=== PATIENT | female | born 1955 | race Caucasian/White ===

== ENCOUNTER 2019-09-07 07:00 | Outpatient (RCR) | payer OTHER, SELFPAY ==
--- NOTE | 2019-07-04 08:16 | PTOPEVAL ---
PHYSICAL THERAPY EVALUATION AND PLAN OF CARE 07-04-19 The PT evaluation was completed today for the diagnosis of L UE and breast lymphedema. The plan of treatment is 3x/week for 5 weeks. Thank you for referring Mrs. Benitez to [facility]. Please review, sign, date and return this plan of care JOBY. I agree with and certify that the following plan of care is medically necessary. Referring Physician Date Attending Provider: Dr. Ciara Jones *PT Outpatient Evaluation Start: 07/04/19 07:09 Document 07/04/19 07:00 CHRISTIANA (Rec: 07/04/19 07:40 CHRISTIANA [email or web address]) Therapy Assessment Status Assessment Status Assessment Status Evaluation Outpatient Past Medical History Neurological History Hx Neurological Disorders No Significant History Cardiovascular History Hx Cardiac Disorders No Significant History Respiratory History Hx Respiratory Disorders No Significant History Gastrointestinal History Hx Gastrointestinal Disorders No Significant History Genitourinary History Hx Genitourinary Disorders No Significant History Musculoskeletal History Hx Other Musculoskeletal Disorders Yes: lupus-overall body pain; osteopenia; Hematological History Hx Hematological Disorders No Significant History Endocrine History Hx Systemic Lupus Erythematosus Yes HEENT History Hx HEENT Disorders No Significant History Psychosocial History Hx Anxiety Yes: on meds Hx Depression Yes: on meds Other History Hx Other Surgeries Yes: tonsillectomy as teenager Evaluation Information Problem Diagnosis L UE lymphedema Onset 06-22-19 Subjective Information to be referred to an infection Query Text:As Reported By Patient/ control dr--appt not set Family Prior Level of Function Activity Level (Last 3 Months) 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
--- NOTE | 2019-07-09 11:07 | PCPTNOTE ---
Patient called & cancelled scheduled appointment this date due to [weather ]
--- NOTE | 2019-07-23 09:31 | PCPTNOTE ---
Patient called & cancelled scheduled appointment this date due to pt thinks she may have the flu. ]
--- NOTE | 2019-08-09 09:06 | PCPTNOTE ---
Pt's reeval was cancelled today . Pt had some questions . Called Kiley back . Kiley stated she called [employer] back and they said the [employer] night Garment would cost $900.00. Patient wanted to know if this was the glez juarez. [employer] could not give her an answer . Pt decided to order through [employer] which was $312.00. Gave Kiley the information to order through [employer] and suggested that after her deductible is met she may want to try to submit the receipt to her insurance. Pt also wanted to know what she should do about her arm since she will not be seen for her reeval until Tuesday. Reviewed the steps she should do to keep her arm from reswelling.
--- NOTE | 2019-08-14 08:16 | PCPTNOTE ---
pt no show no call, called pt nd woke her up. Reminded pt of appointment papa.
--- NOTE | 2019-08-15 16:16 | PTOPEVAL ---
Addendum entered by Mary Anne Rivas, PT 08/15/19 16:40: Plan of care is 2-3x/week for 3 weeks. Original Note: PHYSICAL THERAPY RE-EVALUATION AND UPDATED PLAN OF CARE 08-15-2019 Mrs. Benitez has received 17 Physical Therapy sessions, from July 04 to today,for the diagnosis of L breast and UE lymphedema. She called and canceled 2 and did not show for 1 appointment. Compared to the initial evaluation: The circumferential measurement of her L UE was 318.3 cm today, decreased by 19.3 cm. Last week's measurement was 303 cm. Today it may have been increased due to taking the compression wraps off 6 days ago, due to missing therapy and the weekend. With the circumferential measurement of her trunk: at arm pit level is decreased by .2 cm and at L nipple decreased by 2.5 cm. The tissue of her forearm is less fibrotic/firm. Therapy treatment is scheduled to continue 2-3x/week for 4 weeks. Thank you for referring Kiley to [facility]. Please review, sign, date and return this plan of care [facility]. I agree with and certify that the following plan of care is medically necessary. Referring Physician Date Attending Provider: Dr. Ciara Jones *PT Outpatient Re-Evaluation Document 08/15/19 10:53 CHRISTIANA (Rec: 08/15/19 11:05 CHRISTIANA [email or web address]) Subjective Information Kiley reports: arm is better- Query Text:As Reported By Patient/ -smaller size and feeling good Family ; pleased with progress of arm, but want it to be smaller ; when her arm is not wrapped, is doing the home pump; and doing deep breathing and arm exercises. She took off the compression wraps 6 days ago, due to illness missed therapy. She has been wearing her compression sleeve with stretch wrap over it. Pain Assessment Pain Scale Pain Scale Used Numeric (1 - 10) Self Report Pain Assessment Left Arm(s) Reported Pain Level 0 Pain Score Pain Score 0: Self Report Lymphedema Evaluation Skin Inspection Location Left Breast,Left Upper Extremity Tissue Texture Hard Lymphedema Stage II Skin Inspection Comment -L breast: tissue with normal skin color; area of fibrotic tissue/firmness over outer aspect, without tenderness; - L UE: area of lateral upper forearm with thick/firm tissuse; slight redness with slight tenderness; - pt is wearing a good, supportive/compression bra.
--- NOTE | 2019-09-05 07:32 | PCPTNOTE ---
Pt no show . Called pt and she stated she jerzy to the ER last night and was dx with the flu. Pt stated she called and left a V.M at 12:30am stating she would have to cancel today.
--- NOTE | 2019-09-07 07:54 | PTOPEVAL ---
PHYSICAL THERAPY DISCHARGE 09-07-2019 Ms. Benitez has received 26 Physical Therapy sessions, from July 04 to today, for the diagnosis of L breast and UE lymphedema. Compared to the last reevaluation: circumference of her L arm has decreased by 10.1 cm; the 2 trunk measurements about the same, within 1.7 cm; tissue of lateral breast has softened and no longer fibrotic; continues to have some thickness of tissue over medial-distal humerus and medial-proximal forearm. Kiley has a good understanding of lymphedema management--has 30-40 mmHg compression gauntlet and sleeve, home intermittent compression pump and night compression garment. And she is independent with her self MLD and skin monitoring. Thank you for referring Kiley to [facility]. Please review, sign, date and return this discharge JOBY. I agree with and certify that the following plan of care is medically necessary. Referring Physician Date Attending Provider: Dr. Ciara Henriquez *PT Outpatient Discharge Document 09/07/19 07:10 CHRISTIANA (Rec: 09/07/19 07:54 CHRISTIANA [email or web address]) Assessment Status Discharge Subjective Information Kiley reports: using night Query Text:As Reported By Patient/ garment, have ordered new Family garment, is using her home intermittent compression pump, sometimes feel like upper arm is swollen and hits the side of her breast and agrees to discharge from PT. Pain Assessment Timing of Pain Assessment Timing of Pain Assessment Assessment Pain Scale Pain Scale Used Numeric (1 - 10) Self Report Pain Assessment Left Arm(s) Reported Pain Level 0 Additional Pain Comments reports no pain in L arm or breast; some numbness over upper arm Pain Score Pain Score 0: Self Report Upper Extremity Range of Motion General Upper Extremity Range of Motion Reason Not Measured WNL/Left Gross Upper Extremity Range of Motion no pain with L shoulder AROM; Comments good strength of L arm-doing all home and work tasks; Lymphedema Evaluation Skin Inspection Location Left Breast,Left Upper Extremity,Left Anterior Upper Quadrant,Left Posterior Upper Quadrant Tissue Adhesion Location firmness of tissue over medial -distal humerus and medial- proximal anterior forearm; no tenderness with palpation; breast without any fibrosis or tenderness; Skin Inspection Comment performed abbreviated MLD treatment during evaluation
== END 2019-09-07 12:01 | disposition home or self-care (01) ==
LOC: ANHPT 07:00
DX: I97.2 Postmastectomy lymphedema syndrome (principal)
CPT/HCPCS: 97140; 97161

== ENCOUNTER 2019-09-25 10:29 | Outpatient (CLI) | payer OTHER, SELFPAY ==
--- NOTE | ~2019-09-25 | CT_ITS ---
EXAMINATION: CT chest abdomen pelvis w con DATE: 09/25/2019 11:04 INDICATION: Left breast cancer. TECHNIQUE: Computed tomography (CT) of the chest, abdomen, and pelvis was performed with 100 mL Omnip aque 350 intravenous contrast. Automated exposure control and iterative reconstruction technique were employed. The dose-length product was 374.66 mGy-cm. COMPARISON: CT chest and abdomen 03/29/2019, 11/12/15 FINDINGS: CHEST CT: The lungs demonstrated mild atelectasis bilaterally. There is mild scarring at the anterolateral left lung apex. Calcified left lung nodules and calcified left hilar and mediastinal lymph nodes are cons istent with old granulomatous disease. No pleural effusion. The heart size is normal. There are coron pipo artery calcifications. No pericardial effusion. There are surgical clips in left axilla. There is mild chronic anterior wedging of multiple thoracic vertebral bodies. There is moderate thoracic spon dylosis. ABDOMEN/PELVIS CT: There is an 11 mm mass in right hepatic lobe, stable from 11/12/15, likely benign. The spleen, pancrea s, adrenal glands, and kidneys are normal. There is desiccated stool in mildly dilated loops of ileum without focal transition point, consistent with adynamic ileus. There are no pathologically enlarged lymph nodes. There is no free intraperitoneal fluid. There is moderate lumbar spondylosis. IMPRESSION: 1. No evidence of metastatic disease. 2. Adynamic ileus. Reviewed, dictated and finalized at location A. AVER LETTERING
[2019-09-25 10:57] LABS: Estimated Glomerular Filt Rate > 60
== END 2019-09-25 10:30 | disposition home or self-care (01) ==
LOC: ANHIMG 10:34
PROVIDERS: Visit Provider Internal Medicine Medical Oncology
DX: C50.512 Malignant neoplasm of lower-outer quadrant of left female breast (principal); Z17.1 Estrogen receptor negative status [ER-]; K56.0 Paralytic ileus
CPT/HCPCS: 36415; 71260; 74177; Q9967

== ENCOUNTER 2019-09-28 12:57 | Outpatient (CLI) | payer OTHER, SELFPAY ==
--- NOTE | ~2019-09-28 | MM_ITS ---
EXAMINATION: MM diagnostic clayton RT w raffi HISTORY: Follow-up of benign right stereotactic breast biopsy TECHNIQUE: ML, MLO and cc 3-D tomosynthesis images of the right breast were performed and synthetic 2 -D images were generated. CAD analysis was submitted and interpreted. COMPARISON: 01/19/2019 post stereotactic biopsy right mammogram 01/08/2019diagnostic right digital mammogram and limited right breast ultrasound 12/20/2018 bilateral digital screening mammogram BREAST PARENCHYMAL COMPOSITION: The breasts are heterogeneously dense, which may obscure small masses . FINDINGS: A biopsy marker and some benign-appearing calcifications are noted on the right. No suspici ous mass, architectural distortion, malignant calcification, skin thickening or retraction is evident . IMPRESSION: 1. Benign calcifications 2. No mammographic evidence of malignancy; routine annual mammographic screening follow-up is recomme nded BI-RADS Category 2: Benign finding(s). Reviewed, dictated and finalized at location A. NG ADVISOR IMPRESSION: 1. Benign calcifications 2. No mammographic evidence of malignancy; routine annual mammographic screenin g follow-up is recommended BI-RADS Category 2: Benign finding(s).
== END 2019-09-28 12:58 | disposition home or self-care (01) ==
LOC: ANHIMG 13:12
PROVIDERS: Visit Provider Obstetrics & Gynecology Gynecology
DX: R92.8 Other abnormal and inconclusive findings on diagnostic imaging of breast (principal); M81.0 Age-related osteoporosis without current pathological fracture
CPT/HCPCS: 77061; 77065; G0279

== ENCOUNTER 2019-12-27 09:55 | Outpatient (CLI) | payer OTHER, SELFPAY ==
--- NOTE | ~2019-12-27 | MM_ITS ---
EXAMINATION: MM screening clayton LT w raffi HISTORY: Screening mammogram TECHNIQUE: Craniocaudal and mediolateral oblique 3-D tomosynthesis images were obtained and synthetic 2-D images were generated. Rotated lateral cc view. CAD analysis was submitted and interpreted. COMPARISON: 12/20/2018, 09/28/2017 bilateral digital screening mammogram examinations BREAST PARENCHYMAL COMPOSITION: There are scattered areas of fibroglandular density. FINDINGS: Postoperative change of the left breast is again noted. Occasional benign calcifications. T here is no evidence of suspicious mass, calcification, or architectural distortion to suggest maligna ncy in either breast. There has been no suspicious interval change. IMPRESSION: 1. No mammographic evidence of malignancy. 2. Recommend routine screening mammography in one year. BI-RADS Category 2: Benign finding(s). Reviewed, dictated and finalized at location A.
--- NOTE | ~2019-12-27 | DEXA_ITS ---
Bone Density Report Name: Brittni Benitez Age: 64 Sex: Female Ethnicity: White Date of : 1955 Indication: osteopenia; monitoring treatment; cancer; post menopausal Referring Provider: JEAN PAUL SAUNDERS Study: Bone densitometry was performed. Exam Date: December 27, 2019 Accession number: [id number] Bone Density: Region BMD T-score Z-score Classification AP Spine (L1-L4) 0.844 -1.8 -0.1 Osteopenia Femoral Neck (Left) 0.683 -1.5 0.0 Osteopenia Total Hip (Left) 0.844 -0.8 0.4 Normal Total Hip Bilateral Avg 0.835 -0.9 0.4 Normal Femoral Neck (Right) 0.658 -1.7 -0.2 Osteopenia Total Hip (Right) 0.825 -1.0 0.3 Normal World Health Organization criteria for BMD impression classify patients as: Normal (T-score at or above -1.0), Osteopenia (T-score between -1.0 and -2.5), or Osteoporosis (T-score at or below -2.5). 10-year Fracture Risk: FRAX not reported because: Treated for osteoporosis Previous Exams: Region Exam Age BMD T-score BMD Change BMD Change Date g/cm2 vs Baseline vs Previous AP Spine(L1-L4) 12/27/2019 64 0.844 -1.8 -0.156(-15.6%) 0.011(1.3%) 09/28/2017 62 0.833 -1.9 -0.167(-16.7%) 0.071(9.3%)* 08/08/2015 60 0.762 -2.6 -0.238(-23.8%) -0.197(-20.5%) 04/13/2011 56 0.958 -0.8 -0.041(-4.1%)* -0.041(-4.1%)* 03/01/2008 53 1.000 -0.4 Total Hip(Left) 12/27/2019 64 0.844 -0.8 -0.067(-7.4%)# 0.006(0.7%) 09/28/2017 62 0.838 -0.9 -0.073(-8.0%)# 0.054(6.9%)* 08/08/2015 60 0.784 -1.3 -0.127(-14.0%) -0.067(-7.9%)# 04/13/2011 56 0.851 -0.7 -0.060(-6.6%)* -0.060(-6.6%)* 03/01/2008 53 0.911 -0.3 Total Hip(Right) 12/27/2019 64 0.825 -1.0 -0.053(-6.1%)# -0.015(-1.8%) 09/28/2017 62 0.840 -0.8 -0.038(-4.3%)# 0.050(6.3%)* 08/08/2015 60 0.790 -1.2 -0.088(-10.0%) -0.046(-5.5%)# 04/13/2011 56 0.836 -0.9 -0.042(-4.7%)* -0.042(-4.7%)* 03/01/2008 53 0.878 -0.5 *Denotes significance at 95% confidence level, LSC for AP Spine = 0.022 g/cm2, LSC for Total Hip = 0.027 g/cm2 Clinical Information Provided by Patient: Is being treated for osteoporosis Has used the following medications: Prolia (i.e. denosumab), Vitamin D Has the following medical conditions: Cancer, LUPUS-breast ca Patient maximum height was 64.5 Menopause Age: 53 No regular weight bearing exercise Drinks caffeinated beverages Onset of menses at age 10 Number of children 1 Impression: The patient has
== END 2019-12-27 09:56 | disposition home or self-care (01) ==
LOC: ANHIMG 10:05
PROVIDERS: PCP Family Medicine; Referring Provider Internal Medicine Medical Oncology; Visit Provider Obstetrics & Gynecology Gynecology
DX: Z12.31 Encounter for screening mammogram for malignant neoplasm of breast (principal); Z78.0 Asymptomatic menopausal state; M85.89 Other specified disorders of bone density and structure, multiple sites
CPT/HCPCS: 77063; 77067; 77080

== ENCOUNTER 2020-04-02 10:03 | Outpatient (CLI) | payer MEDICARE, SELFPAY ==
--- NOTE | ~2020-04-02 | CT_ITS ---
EXAMINATION: CT chest abdomen pelvis w con DATE: 04/02/2020 11:01 INDICATION: Malignant neoplasm of the lower outer quadrant of left breast; restaging TECHNIQUE: Computed tomography (CT) of the chest, abdomen, and pelvis was performed with 100 cc Omnip aque 350 intravenous contrast. Automated exposure control and iterative reconstruction technique were employed. Exam dose: 390.47 mGy-cm total exam DLP. COMPARISON: 09/25/2019 CT chest abdomen pelvis 03/23/2016 CT chest abdomen FINDINGS: CHEST CT: The thyroid gland is unremarkable. No hilar or mediastinal mass lesion or lymphadenopathy. No thoraci c aortic aneurysm. Normal heart size. Coronary artery atherosclerosis. Stable left apical scarring compared to 09/25/2019. No interval pulmonary infiltrate or consolidation o r pulmonary mass lesion. Postoperative change of left breast. ABDOMEN/PELVIS CT: Stable right hepatic approximately 10 mm mass, unchanged since 09/25/2019 and 03/23/2016. The liver, spleen, pancreas, adrenal glands and kidneys are otherwise unremarkable. Normal caliber of the abdominal aorta, with atherosclerotic calcification. No intraperitoneal or retroperitoneal or pe lvic mass lesion or adenopathy or ascites is evident. The urinary bladder, uterus and adnexal areas a re unremarkable. Diverticulosis of the colon; no CT evidence of diverticulitis. No bowel obstruction, bowel wall thick ening, pneumatosis or intraperitoneal free air. No suspicious osteolytic or osteoblastic lesions are noted. IMPRESSION: No metastatic disease or significant change since 10/12/2019 Reviewed, dictated and finalized at Location A. Reviewed, dictated and finalized at location A.
[2020-04-02 11:27] LABS: Estimated Glomerular Filt Rate > 60
== END 2020-04-02 10:04 | disposition home or self-care (01) ==
LOC: ANHIMG 10:07
PROVIDERS: PCP Family Medicine; Visit Provider Internal Medicine Medical Oncology
DX: C50.512 Malignant neoplasm of lower-outer quadrant of left female breast (principal); Z17.1 Estrogen receptor negative status [ER-]
CPT/HCPCS: 71260; 74177; Q9967

== ENCOUNTER 2020-09-30 09:21 | Outpatient (CLI) | payer MEDICARE, SELFPAY ==
--- NOTE | ~2020-09-30 | CT_ITS ---
EXAMINATION: CT chest abdomen pelvis w con DATE: 09/30/2020 10:09 INDICATION: Malignant neoplasm of the left breast TECHNIQUE: Transaxial computed tomographic images of the chest, abdomen, and pelvis were obtained aft er the administration of 100 cc of Omnipaque 350 intravenous contrast. The dose-length product (DLP) was 473.15 mGy-cm. Automated exposure control and iterative reconstruction technique were employed. COMPARISON: 04/02/2020 FINDINGS: CHEST CT: Lumpectomy changes are noted in the left breast. There are stable subpleural reticular opacities ante riorly in the left upper lobe, likely reflecting radiation change. There is mild dependent atelectasi s. No suspicious pulmonary nodules are identified. No pathologically enlarged thoracic lymph nodes ar e identified. The heart size is normal. There is no pleural effusion or pneumothorax. There is modera te thoracic spondylosis. ABDOMEN/PELVIS CT: There is a stable 11 mm lesion in the right hepatic lobe, most likely benign given the lack of interv al change. The spleen, pancreas, gallbladder, and adrenal glands are normal. The kidneys are unremark able. There is calcified atherosclerosis of the aorta and many of the other arteries. No pathological ly enlarged abdominal or pelvic lymph nodes are identified. There is no free intraperitoneal gas or e vidence of bowel obstruction. A moderate volume of colonic stool is present. There is moderate lumbar spondylosis. IMPRESSION: 1. No evidence of metastatic disease. Reviewed, dictated and finalized at location A. 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
[2020-09-30 10:00] LABS: Estimated Glomerular Filt Rate > 60
== END 2020-09-30 09:22 | disposition home or self-care (01) ==
PROVIDERS: PCP Family Medicine; Visit Provider Internal Medicine Medical Oncology
DX: C50.512 Malignant neoplasm of lower-outer quadrant of left female breast (principal); Z17.1 Estrogen receptor negative status [ER-]
CPT/HCPCS: 71260; 74177; Q9967

== ENCOUNTER 2020-12-24 07:56 | Outpatient (CLI) | payer MEDICARE, SELFPAY ==
--- NOTE | ~2020-12-24 | MM_ITS ---
EXAMINATION: MM screening clayton BI w raffi HISTORY: Screening TECHNIQUE: Craniocaudal and mediolateral oblique 3-D tomosynthesis images were obtained and synthetic 2-D images were generated. CAD analysis was submitted and interpreted. COMPARISON: Comparison to multiple prior studies sequentially, with oldest reviewed study dated 01/08. BREAST PARENCHYMAL COMPOSITION: The breasts are heterogeneously dense, which may obscure small masses . FINDINGS: Stable surgical changes of the left breast. There is no evidence of suspicious mass, calcif ication, or architectural distortion to suggest malignancy in either breast. There has been no suspic ious interval change. IMPRESSION: 1. No mammographic evidence of malignancy. 2. Recommend routine screening mammography in one year. BI-RADS Category 2: Benign finding(s). Reviewed, dictated and finalized at location A.
== END 2020-12-24 07:57 | disposition home or self-care (01) ==
LOC: ANHIMG 07:59
PROVIDERS: PCP Family Medicine; Visit Provider Obstetrics & Gynecology Gynecology
DX: Z12.31 Encounter for screening mammogram for malignant neoplasm of breast (principal)
CPT/HCPCS: 77063; 77067

== ENCOUNTER 2021-03-31 10:32 | Outpatient (CLI) | payer MEDICARE, SELFPAY ==
--- NOTE | ~2021-03-31 | CT_ITS ---
EXAMINATION: CT chest abdomen pelvis w con EXAM DATE: 03/31/2021 10:59 INDICATION: Malignant neoplasm of lower out quad LT breast in female. TECHNIQUE: Spiral CT of the chest, abdomen and pelvis was performed following intravenous injection o f 100 mL Omnipaque 350. Axial, coronal and sagittal images chest, abdomen and pelvis were reviewed. Coronal maximum intensity pixel images of chest reviewed. The dose-length product (DLP) for this ex amination was 428.33 mGy-cm. The exposure was tailored according to patient size (auto mA exposure c ontrol), and iterative reconstruction (ASIR) was used as additional dose reduction technique. Compari son is made to prior examination from 09/30/2020. FINDINGS: CHEST: Left apical scarring is unchanged. There are left axillary surgical clips from lymph node dis section. There are no pleural or pericardial effusions. Tracheobronchial tree is patent. There i s no mediastinal, hilar or axillary lymphadenopathy. There is no pneumothorax. Heart normal in si ze. There is mild coronary arterial calcification, arterial sclerosis. ABDOMEN PELVIS: Previously seen 11 mm right liver lobe hypodensity is unchanged, benign finding. The liver, spleen, adrenal glands and pancreas are otherwise unremarkable. Gallbladder is unremarkable. No biliary obstruction. Portal and splenic veins are patent. Kidneys enhance symmetrically. Ther e is no hydronephrosis. There are several fibroids. The bladder is unremarkable. There is no retr operitoneal or pelvic lymphadenopathy. There are no findings to suggest appendicitis. The stomach and small bowel are unremarkable. There is moderate amount of colonic stool. There is mild sigmoid colonic diverticulosis. There is no adjac ent inflammatory change to suggest diverticulitis. No free intraperitoneal gas. There are no osteo blastic or osteolytic lesions identified. There is lower lumbar facet arthropathy. IMPRESSION: 1. No evidence of metastatic disease. 2. Small fibroids. 3. Mild diverticulosis. Reviewed, dictated and finalized at location A.
[2021-03-31 10:55] LABS: Estimated Glomerular Filt Rate > 60
== END 2021-03-31 10:33 | disposition home or self-care (01) ==
LOC: ANHIMG 10:40
PROVIDERS: PCP Family Medicine; Visit Provider Internal Medicine Medical Oncology
DX: C50.512 Malignant neoplasm of lower-outer quadrant of left female breast (principal); K57.30 Diverticulosis of large intestine without perforation or abscess without bleeding; D25.9 Leiomyoma of uterus, unspecified
CPT/HCPCS: 71260; 74177; Q9967

== ENCOUNTER 2021-10-01 09:40 | Outpatient (CLI) | payer MEDICARE, SELFPAY ==
--- NOTE | ~2021-10-01 | CT_ITS ---
EXAMINATION: CT chest abdomen pelvis w con DATE: 10/01/2021 10:16 INDICATION: Breast cancer restaging, malignant neoplasm of the lower-outer quadrant of the left breas t TECHNIQUE: Transaxial computed tomographic images of the chest, abdomen, and pelvis were obtained aft er the administration of 100 cc of Omnipaque 350 intravenous contrast. The dose-length product (DLP) was 364.53 mGy-cm. Automated exposure control and iterative reconstruction technique were employed. COMPARISON: 03/31/2021 FINDINGS: CHEST CT: The lungs are free of acute opacities. Lumpectomy changes are again noted in the left breast. There a re also changes of left axillary lymph node dissection. There is no pleural effusion or pneumothorax. No pathologically enlarged thoracic lymph nodes are identified. The heart size is normal. There is m oderate thoracic spondylosis. ABDOMEN/PELVIS CT: Again noted is a stable 11 mm lesion of the right hepatic lobe. The spleen, pancreas, gallbladder, an d adrenal glands are normal. The kidneys are unremarkable. No pathologically enlarged abdominal or pe lvic lymph nodes are identified. There is calcified atherosclerosis of the aorta and many of the othe r arteries. There is no free intraperitoneal gas or evidence of bowel obstruction. There is moderate lumbar spondylosis. IMPRESSION: 1. No evidence of metastatic disease. Reviewed, dictated and finalized at location B. INE WELT BUTTER
[2021-10-01 10:09] LABS: Estimated Glomerular Filt Rate > 60
== END 2021-10-01 09:41 | disposition home or self-care (01) ==
PROVIDERS: PCP Family Medicine; Visit Provider Internal Medicine Medical Oncology
DX: C50.512 Malignant neoplasm of lower-outer quadrant of left female breast (principal); Z17.1 Estrogen receptor negative status [ER-]
CPT/HCPCS: 71260; 74177; Q9967

== ENCOUNTER 2022-03-31 10:26 | Outpatient (CLI) | payer MEDICARE, SELFPAY ==
--- NOTE | ~2022-03-31 | MM_ITS ---
EXAMINATION: MM screening [place]ton BI w raffi HISTORY: Screening mammogram TECHNIQUE: Craniocaudal and mediolateral oblique 3-D tomosynthesis images were obtained and synthetic 2-D images were generated. CAD analysis was submitted and interpreted. COMPARISON: bilateral screening mammogram 12/27/2019 left screening mammogram 09/28/2019 diagnostic right mammogram BREAST PARENCHYMAL COMPOSITION: The breasts are heterogeneously dense, which may obscure small masses . FINDINGS: Status post left partial mastectomy for breast cancer. Surgical clips are again noted in th e posterior lower outer left breast. Occasional bilateral benign calcifications. There is no evidence of suspicious mass, calcification, o r architectural distortion to suggest malignancy in either breast. There has been no suspicious inter [place] change. IMPRESSION: 1. Status post left partial mastectomy for breast cancer. No mammographic evidence of malignancy. 2. Recommend routine screening mammography in one year. BI-RADS Category 2: Benign finding(s). Reviewed, dictated and finalized at location A. IMPRESSION: 1. Status post left partial mastectomy for breast cancer. No mammographic evide nce of malignancy. 2. Recommend routine screening mammography in one year. BI-RADS Category 2: Benign finding(s).
== END 2022-03-31 10:27 | disposition home or self-care (01) ==
PROVIDERS: PCP Family Medicine; Visit Provider Obstetrics & Gynecology Gynecology
DX: Z12.31 Encounter for screening mammogram for malignant neoplasm of breast (principal)
CPT/HCPCS: 77063; 77067

== ENCOUNTER 2022-04-13 13:39 | Outpatient (CLI) | payer MEDICARE, SELFPAY ==
--- NOTE | ~2022-04-13 | DEXA_ITS ---
Bone Density Report Name: ZEENAT JENKINS Age: 67 Sex: Female Ethnicity: White Date of : 1955 Indication: osteopenia; monitoring treatment; height loss; inflammatory bowel disease; cancer; Referring Provider: JEAN PAUL SAUNDERS Study: Bone densitometry was performed. Exam Date: April 13, 2022 Accession number: [id number] Bone Density: Region BMD T-score Z-score Classification AP Spine(L1-L4) 0.874 -1.6 0.3 Osteopenia Femoral Neck (Left) 0.680 -1.5 0.1 Osteopenia Total Hip (Left) 0.800 -1.2 0.2 Osteopenia Femoral Neck (Right) 0.693 -1.4 0.2 Osteopenia Total Hip (Right) 0.828 -0.9 0.4 Normal Total Hip Mean 0.814 -1.1 0.3 Osteopenia World Health Organization criteria for BMD impression classify patients as: Normal (T-score at or above -1.0), Osteopenia (T-score between -1.0 and -2.5), or Osteoporosis (T-score at or below -2.5). 10-year Fracture Risk: FRAX not reported because: Treated for osteoporosis Previous Exams: Region Exam Age BMD T-score BMD Change BMD Change Date g/cm2 vs Baseline vs Previous AP Spine (L1-L4) 04/13/2022 67 0.874 -1.6 0.112 (14.7%)* 0.030 (3.6%)* 12/27/2019 64 0.844 -1.8 0.082 (10.8%)* 0.011 (1.3%) 09/28/2017 62 0.833 -1.9 0.071 (9.3%)* 0.071 (9.3%)* 08/08/2015 60 0.762 -2.6 Total Hip(Left) 04/13/2022 67 0.800 -1.2 0.017 (2.1%) -0.043 (-5.1%) 12/27/2019 64 0.844 -0.8 0.060 (7.7%)* 0.006 (0.7%) 09/28/2017 62 0.838 -0.9 0.054 (6.9%)* 0.054 (6.9%)* 08/08/2015 60 0.784 -1.3 Total Hip(Right) 04/13/2022 67 0.828 -0.9 0.038 (4.8%)* 0.004 (0.5%) 12/27/2019 64 0.825 -1.0 0.035 (4.4%)* -0.015 (-1.8%) 09/28/2017 62 0.840 -0.8 0.050 (6.3%)* 0.050 (6.3%)* 08/08/2015 60 0.790 -1.2 *Denotes significance at 95% confidence level, LSC for AP Spine = 0.022 g/cm2, LSC for Total Hip = 0.027 g/cm2 Clinical Information Provided by Patient: Is being treated for osteoporosis Has used the following medications: Prolia (i.e. denosumab), Calcium Has the following medical conditions: Cancer, Inflammatory bowel diseases, lupus Patient maximum height was 65 Menopause Age: 53 No regular weight bearing exercise Drinks caffeinated beverages Onset of menses at age 10 Number of children 1 Impression: The patient has low bone mass, based on the Total Spine T-score. The BMD for the Total Hip(Left) decreased, changing by -5.1% since
== END 2022-04-13 13:40 | disposition home or self-care (01) ==
PROVIDERS: PCP Family Medicine; Visit Provider Obstetrics & Gynecology Gynecology
DX: Z78.0 Asymptomatic menopausal state (principal); M85.88 Other specified disorders of bone density and structure, other site; M85.852 Other specified disorders of bone density and structure, left thigh; M85.851 Other specified disorders of bone density and structure, right thigh
CPT/HCPCS: 77080

== ENCOUNTER 2023-06-21 08:11 | Outpatient (CLI) | payer MEDICARE, SELFPAY ==
--- NOTE | ~2023-06-21 | MM_ITS ---
EXAMINATION: MM screening [facility] BI w raffi HISTORY: Screening mammogram TECHNIQUE: Craniocaudal and mediolateral oblique 3-D tomosynthesis images were obtained and synthetic 2-D images were generated. CAD analysis was submitted and interpreted. COMPARISON: 03/31/2022, 12/24/2020, 12/27/2019, 09/28/2019 BREAST PARENCHYMAL COMPOSITION:There are scattered areas of fibroglandular density. FINDINGS: Stable postoperative changes noted in the left breast. No suspicious mass, calcification, o r architectural distortion are identified in either breast to suggest malignancy. There has been no s uspicious interval change. IMPRESSION: No mammographic evidence of malignancy. Recommend routine screening mammography in one year. BI-RADS Category 2: Benign finding(s). Reviewed, dictated and finalized at location . GER MOTOR
== END 2023-06-21 08:12 | disposition home or self-care (01) ==
PROVIDERS: PCP Family Medicine; Visit Provider Obstetrics & Gynecology Gynecology
DX: Z12.31 Encounter for screening mammogram for malignant neoplasm of breast (principal)
CPT/HCPCS: 77063; 77067

== ENCOUNTER 2024-05-01 12:45 | Outpatient (CLI) | payer MEDICARE, SELFPAY ==
--- NOTE | ~2024-05-01 | DEXA_ITS ---
Bone Density Report Name: ZEENAT JENKINS Age: 69 Sex: Female Ethnicity: White Date of : 1955 Indication: postmenopausal; screening for osteoporosis; cancer; Referring Provider: JEAN PAUL SAUNDERS Study: Bone densitometry was performed. Exam Date: May 01, 2024 Accession number: [id number] Bone Density: Region BMD T-score Z-score Classification AP Spine(L1-L4) 0.963 -0.8 1.3 Normal Femoral Neck (Left) 0.723 -1.1 0.6 Osteopenia Total Hip (Left) 0.938 0.0 1.4 Normal Femoral Neck (Right) 0.755 -0.9 0.9 Normal Total Hip (Right) 0.958 0.1 1.6 Normal Total Hip Mean 0.948 0.1 1.5 Normal World Health Organization criteria for BMD impression classify patients as: Normal (T-score at or above -1.0), Osteopenia (T-score between -1.0 and -2.5), or Osteoporosis (T-score at or below -2.5). 10-year Fracture Risk(1): Major Osteoporotic Fracture 5.0% Hip Fracture 0.5% Reported Risk Factors: [place] (), Neck BMD=0.723, BMI=25.9 (1) FRAX(R) Version 3.08. Fracture probability calculated for an untreated patient. Fracture probability may be lower if the patient has received treatment. Clinical Information Provided by Patient: Has used the following medications: Vitamin D, Calcium Has the following medical conditions: Cancer Patient maximum height was 64 Menopause Age: 53 No regular weight bearing exercise Onset of menses at age 10 Number of children 1 Impression: The patient has low bone mass, based on the Left Femoral Neck T-score. The patient has an estimated ten-year risk of hip fracture of 0.5% and an estimated ten-year risk of major fracture of 5%, based on the WHO FRAX algorithm. Discussion: BONE DENSITY IS LOW AT ONE OR MORE SKELETAL SITES. This patient's lowest T-score is low at one or more skeletal sites. It meets the World Health Organization's (WHO) criteria for ?low bone mass? (T-score between -1.0 and -2.5). The patient's 10-year risk of fracture as calculated by FRAX is less than the threshold where pharmacological therapy is recommended by the National Osteoporosis Foundation (NOF). However, all treatment decisions require clinical judgment and consideration of individual patient factors, including patient preferences, comorbidities, previous drug use, risk factors not captured in the FRAX model (e.g., frailty, falls, vitamin D deficiency, increased bone turnover, interval significant decline in bone density) and possible under or overestimation of fracture risk by FRAX. The patient should follow a healthful lifestyle (good nutrition with adequate calcium and vitamin D, and appropriate weight-bearing exercise). Follow-Up: Consider repeating this study in 2 to 3 years to reassess this patient's status, or sooner if there is some new clinical indication.
== END 2024-05-01 12:46 | disposition home or self-care (01) ==
LOC: ANHIMG 12:47
PROVIDERS: PCP Family Medicine; Visit Provider Obstetrics & Gynecology Gynecology
DX: Z78.0 Asymptomatic menopausal state (principal); M85.88 Other specified disorders of bone density and structure, other site
CPT/HCPCS: 36415; 77080; 82040; 82310

== ENCOUNTER 2024-08-15 14:22 | Outpatient (CLI) | payer MEDICARE, SELFPAY ==
--- NOTE | ~2024-08-15 | MM_ITS ---
EXAMINATION: MM screening [facility] BI w raffi HISTORY: Screening TECHNIQUE: Craniocaudal and mediolateral oblique 3-D tomosynthesis images were obtained and synthetic 2-D images were generated. CAD analysis was submitted and interpreted. COMPARISON: Comparison to multiple prior studies sequentially, with oldest reviewed study dated 01/19. BREAST PARENCHYMAL COMPOSITION: There are scattered areas of fibroglandular density. FINDINGS: Lumpectomy changes in the left breast are stable. There is no evidence of suspicious mass, calcification, or architectural distortion to suggest malignancy in either breast. There has been no suspicious interval change. IMPRESSION: 1. No mammographic evidence of malignancy. 2. Recommend routine screening mammography in one year. BI-RADS Category 1: Negative Reviewed, dictated and finalized at location A. [facility] NURSE ICU
--- OUTSIDE RECORDS SUMMARY | 2024-08-17 02:08 | XMS_ITS | Encounter Summary ---
Author Organization [facility] Facility Care Team Providers Care Computer Discovery Teacher Name Role Phone Tarsha Maxwell MD Primary Care Provi ronald Capo Young DO Unavailable [phone] Ciara Jones MD Unavailable [phone] Encounter Details Date Type Department Care Team (Latest Contact Info) Description 04/20/2018 Orders Only [facility] CLINCONV ProviderKatiuska MD [address] [place] [id number] Social History Tobacco Use Types Packs/Day Years Used Date Smoking Tobacco: Former Smokeless Tobacco: Former Alcohol Use Standard Drinks/Week Comments No 0 (1 standard drink = 0.6 oz pur e alcohol) Comments Unknown Sex and Gender Information Value Date Recorded Sex Assigned at Not on file Legal Sex Female 10:36 AM ICT PROJECT MANAGER Gender Identity Female 06/21/2018 1:11 PM ICT PROJECT MANAGER Sexual Orientation Not on file documented as of this encounter Plan of Treatment Not on file documented as of this encounter Procedures Procedure Name Priority Date/Time Associated Diagnosis Comments SCAN - LABS 04/25/2018 12:00 AM CDT documented in this encounter Results * SCAN - LABS (04/25/2018 12:00 AM CDT) Narrative 04/25/2018 12:00 AM CDT Ordered by an unspecified provider. Historical Provider Final Res ult documented in this encounter Visit Diagnoses Not on filedocumented in this encounter Additional Health Concerns Infection Onset Date Last Indicated Resolved Time Exposure, COVID-19 Comment:Added automatically based on COVID19 lab answers indicating exposure risk 01/14/2020 01/14/2020 01/29/2020 3:05 AM C DT COVID: Suspected 03/20/2021 03/20/2021 03/20/2021 8:35 PM CDT COVID: Suspected 03/23/2021 03/24/2021 03/24/2021 6:58 PM CDT Exposure, COVID-19 Comment:Added automatically based on COVID19 lab answers indicating exposure risk 06/11/2021 06/11/2021 06/26/2021 3:[address] COVID: Suspected 06/11/2021 06/11/2021 06/11/2021 10:05 PM ICT PROJECT MANAGER documented as of this encounter Care Teams Computer Discovery Teacher Relationship Specialty Start Date End Date Tarsha Maxwell MD [address] [place], [place] [phone] PCP - General 09/01/17 Capo Young DO [address] [place] [address] [phone] Medical Oncologist/Transfer Iron Operator Hematology and Oncology 03/08/18 Ciara Jones MD [address] [place] [address] [phone] Referring Physician Radiation Oncology 03/27/19 documented as of this encounter
--- OUTSIDE RECORDS SUMMARY | 2024-08-17 02:08 | XMS_ITS | Referral Summary ---
Author Organization [facility] Address [address] [place] [address] Care Team Providers Care Silo Filler Name Role Phone Unavailable Primary Care Provider Unavailabl e Source Comments [facility],non-owned Affiliates and Associated Physician Practices is amultiple site organization consisting of ambulatory clinics and hospital sitesin [place], [place], [place] and [place]. This disclosure is being madepursuant to the Care Everywhere program and may not contain all information available regarding this patient. Last updated 18.[facility] [place] Social History Tobacco Use Types Packs/Day Years Used Date Smoking Tobacco: Never Assessed Sex and Gender Information Value Date Recorded Sex Assigned at Not on file Gender Identity Not on file Sexual Orientation Not on file Plan of Treatment Not on file
--- OUTSIDE RECORDS SUMMARY | 2024-08-17 02:08 | XMS_ITS | Clinical Summary ---
Author Organization [facility] Address [address] [place] [address] Care Team Providers Care Psychiatric Social Worker Name Role Phone Unavailable Primary Care Provider Unavailabl e Source Comments [facility],non-owned Affiliates and Associated Physician Practices is amultiple site organization consisting of ambulatory clinics and hospital sitesin [place], [place], [place] and [place]. This disclosure is being madepursuant to the Care Everywhere program and may not contain all information available regarding this patient. Last updated 18.[facility] [place] Social History Tobacco Use Types Packs/Day Years Used Date Smoking Tobacco: Never Assessed Sex and Gender Information Value Date Recorded Sex Assigned at Not on file Gender Identity Not on file Sexual Orientation Not on file Plan of Treatment Health Maintenance Due Date Last Done Comments BONE DENSITY TESTING 1955 COLOGUARD (AGES 45-75) - COL ON CA SCREENING 1955 COLON MONITORING 1955 COLONOSCOPY - COLON CA SCREENING 1955 CT COLONOGRAPHY - COLON CA SCREENING 1955 Colorectal Cancer Screening 1955 FIT - COLON CA SCREENING 1955 FLEX SIG - COLON CA SCREENING 1955 LIPID TESTING 1955 MAMMOGRAM 1955 MEDICARE AWV ? 12 MONTHS 1955 HEPATITIS C SCREENING 02/01/1973 DTAP/TDAP/TD VACCINES (1 - Tdap) 1974 PNEUMOCOCCAL VACCINE 50+ (1 of 1 - PCV) 2005 ZOSTER VACCINE (1 of 2) 2005 COVID-19 VACCINE ( - 2023-2 5 season) 2024 INFLUENZA VACCINE (#1) 2024 DEPRESSION SCREENING 07/25/2024 Respiratory Syncytial Virus (RSV) Vaccine Pt: or over 60 yrs (1 - 1-dose 75+ series) 2030 HEPATITIS B VACCINE Aged Out No longe r eligible based on patient's age to complete this topic HIB VACCINE Aged Out No longer eligi ble based on patient's age to complete this topic HPV VACCINE Aged Out No longer eligi ble based on patient's age to complete this topic MENINGOCOCCAL (Group B) VACCINE Aged Out No longer eligible based on patient's age to complete this topic MENINGOCOCCAL VACCINE Aged Out No gricelda mariaa eligible based on patient's age to complete this topic
--- OUTSIDE RECORDS SUMMARY | 2024-08-17 02:08 | XMS_ITS | Clinical Summary ---
Author Organization [facility] Nelly Ovalles nsion Address [address] [facility] [address] [place] [address] Care Team Providers Care Voice Data Communications Engineer Name Role Phone Tarsha Maxwell MD Primary Care Provi ornald Capo Young DO Unavailable [phone] Ciara Jones MD Unavailable [phone] Allergies Active Allergy Reactions Criticality Noted Date Comments Clindamycin Rash Medium 08/22/2017 Iodinated Contrast Media Rash Medium 08/18/2016 Levofloxacin Rash Medium 10/31/2018 Reaction: Rash, Hydroxychloroquine Rash Medium 08/22/2017 Medications nortriptyline (PAMELOR) 10 mg capsule take 1 Capsule (10MG) by oral route every day 0 012 Active clonazePAM (KlonoPIN) 0.5 mg tablet Take one tablet daily/ patient splits pill in half 0 012 Active Additional Information Patient taking differently: 0.25 mg oral 2 times daily PRN, anxiety, Take 0.5mg in the morning, take 0.5mg in the evening as needed., Reported on 08/16/2024 qklppzsf-crwdxyv-dukw- lutein (CENTRUM SILVER ULTRA WOMEN'S) tablet 0 012 Active Additional Information Patient taking differently: Daily, Reported on 08/16/2024 nortriptyline (PAMELOR) 50 mg capsule take 2 Capsule (100MG) by oral route every day 0 012 Active denosumab (PROLIA) 60 mg/mL syringe INJECT SUBCUTANEOUSLY 60 MG / 1 ML EVERY 6 MONTHS 017 Active nystatin-triamcinolone cream APPLY TO THE AFFECTED AREA TWICE DAILY NEEDED 021 Active cholecalciferol, vitamin D3, (VITAMIN D3 ORAL) Take 2,000 Units by mouth daily Active metroNIDAZOLE (METROGEL) 0.75 % gel Apply topically 2 (two) times a day 023 Active folic acid (FOLVITE) 1 mg tablet Take 2 tablets (2 mg total) by mouth daily 60 tablet 11 024 Active polyethylene glycol (MIRALAX) 17 gram/dose bulk powderIndications:Cons tipation, unspecified constipation type Take 17 g by mouth daily 510 g 1 024 Active pravastatin (PRAVACHOL) 10 mg tabletIndications:Pure hypercholesterolemia TAKE 1 TABLET(10 MG) BY MOUTH DAILY 90 tablet 3 024 Active methotrexate 2.5 mg tabletIndications:auto immune disease Take 6 tablets (15 mg total) by mouth every 7 days Pt increased to [address] Dominguez 72 tablet Active Klayesta powder APPLY A SMALL AMOUNT TO CHEST TWICE DAILY NEEDED Active methotrexate 2.5 mg tabletIndications:auto immune disease Take 6 tablets (15 mg total) by mouth every 7 days Pt increased to [address] Dominguez 72 tablet 024 2023 Obdulia pina(Reo rder) Active Problems Problem Noted Date Diagnosed Date Overweight (BMI 25.0-29.9) 05/01/2024 Assessment & Plan (05/01/2024 10:16 AM CDT): BMI Follow-up includes: education provided. Abdominal discomfort 03/29/2024 Overview (03/29/2024): new, acute, but improved will check xray-?constipation will check labs if symptoms worsen or change- to the er will treat constipation call for questions Hearing difficulty of both ears 11/30/2023 Overview (11/30/2023): chronic, worse will place referral to audiology Mild episode of recurrent major depressive disor ronald 11/30/2023 Assessment & Plan (01/25/2024 3:27 PM CDT): Chronic, persistent Continue pamelor Continue healthy changes for her mood Managed by psychiatry Call for questions Assessment & Plan (11/30/2023 9:19 AM CDT): Chronic, symptomatic Managed by psychiatry Given her low life satisfaction and symptoms- will refer to psychology Encouraged to follow up with psychiatry Call if mood worsens Age-related osteoporosis wit dinora current pathological fracture 11/08/2022 Assessment & Plan (11/30/2023 9:05 AM CDT): Chronic, stable Continue Prolia Assessment & Plan (11/08/2022 11:01 AM CDT): Chronic, stable Continue prolia Will request DEXA Stress incontinence 11/08/2022 Assessment & Plan (11/30/2023 9:15 AM CDT): Chronic, persistent/bothersome ContinueTo monitor symptoms Will refer to urology for guidance as her daughter saw one with improvement Encounter for Medicare annual wellness exam 09/23 Overview (11/30/2023): Work on healthy changes Encouraged to get POA/Living will Health Maintenance: Last mammogram: 03/2022, 06/16- WNL Last DEXA: 12/25/20-on prolia-scheduled Last colonoscopy: 06/22/21- repeat in 10 yearsd Last Tdap:10/2019 Last pneumonia: up to date Last Shingrix: up to date Last Flu: encouraged COVID vaccine: reviewed encouraged Assessment & Plan (11/30/2023 9:09 AM CDT): Work on healthy changes Encouraged to get POA/Living will Health Maintenance: Last mammogram: 03/2022, 06/16- WNL Last DEXA: 12/25/20-on prolia-scheduled Last colonoscopy: 06/22/21- repeat in 10 yearsd Last Tdap:10/2019 Last pneumonia: up to date Last Shingrix: up to date Last Flu: encouraged COVID vaccine: reviewed encouraged Assessment & Plan (11/08/2022 10:51 AM CDT): Work on healthy changes Encouraged to get POA/Living will Health Maintenance: Last mammogram: 03/2022- WNL Last DEXA: 12/25/20-on prolia Last colonoscopy: 06/22/21- repeat in 10 yearsd Last Tdap:10/2019 Last pneumonia: reviewed, encouraged Last Shingrix: up to date Last Flu: encouraged COVID vaccine: reviewed encouraged Assessment & Plan (10/27/2021 10:56 AM CDT): Work on healthy changes Encouraged to get POA/Living will Health Maintenance: Last mammogram: will schedule Last DEXA: 12/25/20-on prolia Last colonoscopy: 06/22/21- repeat in 10 yearsd Last Tdap:10/2019 Last pneumonia/Prevnar:05/2019 Last Shingrix: up to date Last Flu: encouraged COVID vaccine: up to date Assessment & Plan (10/15/2020 10:27 AM CDT): Encouraged healthy diet and activity Please look into a power of contracts attorney or living will-forms given Wear sun screen, seat belts Health Maintenance: Last mammogram: will schedule Last DEXA: ordered Last colonoscopy: referral placed Last Tdap:10/2019 Last pneumonia/Prevnar:05/2019 Last Shingrix: reviewed Last Flu: encouraged COVID vaccine: reviewed how to set up Chronic constipation 10/06/2020 Assessment & Plan (01/25/2024 3:27 PM CDT): Chronic, persistent Will check xray Consider miralax 1/2 cap daily vs linzess if no improvement Update me in the next week Call for questions Assessment & Plan (11/30/2023 9:13 AM CDT): Chronic, stable Encouraged healthy habits for her bowels Continue miralax as needed Assessment & Plan (11/08/2022 10:54 AM CDT): Chronic ER notes reviewed Will have her hold on enemas Continue miralax twice daily for the next week We can decrease her miralax to once daily if she is doing well Call if her s/sx worsen or do not improve Assessment & Plan (10/27/2021 10:59 AM CDT): Improved continue to monitor Assessment & Plan (10/15/2020 10:30 AM CDT): Continue miralax Keep appointment with Dr Yates Call for questions or concerns Assessment & Plan (10/06/2020 8:17 AM CDT): miralax daily Increase hydration Will give her mag citrate to try Consider linzess if no improvement Will refer to GI for further guidance Call for questions or concerns Anxiety 08/04/2020 Assessment & Plan (01/25/2024 3:26 PM CDT): Chronic, persistent Managed by psychiatry Continue klonopin Continue healthy habits for her mood Update me with changes or concerns Assessment & Plan (12/22/2023 8:54 AM CDT): Chronic, stable Managed by psychiatry Continue current regimen-klonopin Assessment & Plan (11/30/2023 9:05 AM CDT): Chronic, uncertain level of control Managed by Psychiatry Encouraged to reach out to them regarding her mood concerns Encouraged to consider therapy given low life satisfaction Assessment & Plan (11/08/2022 10:53 AM CDT): Chronic, stable Continue to follow with psychiatry Mood is fair overall Update me with any changes Assessment & Plan (10/27/2021 10:59 AM CDT): Stable Continue to follow with her psychiatrist Encouraged to look into therapy Assessment & Plan (05/27/2021 1:19 PM CDT): Stable Continue klonopin, pamelor as prescribed Continue healthy changes Call for questions or concerns Assessment & Plan (10/15/2020 10:29 AM CDT): Continue to follow with her psychiatrist Continue current regimen Update me with changes Assessment & Plan (08/04/2020 2:51 PM CEMENT WORKER): Continue current regimen Call for questions or concerns Recurrent cellulitis 10/24/2019 Assessment & Plan (12/22/2023 8:55 AM CDT): Recurrent, improved Augmentin completed Continue to monitor symptoms closely Update me with any changes Assessment & Plan (11/30/2023 9:06 AM CDT): Recurrent, but currently asymptomatic To the emergency room symptoms were to occur Assessment & Plan (11/08/2022 11:00 AM CDT): Asymptomatic Continue to monitor Assessment & Plan (10/27/2021 11:04 AM CDT): Asymptomatic today Encouraged to set up follow up with ID Update me with any changes Assessment & Plan (09/21/2021 11:17 AM CEMENT WORKER): improved Will refer to new ID provider- [facility] Complete antibiotics Update me after her appointment Call for questions or concerns Assessment & Plan (05/27/2021 1:18 PM CDT): Labs and cultures reviewed Complete 14 days of antibiotics Set up follow up with infectious disease Continue to monitor her symptoms Update me with any changes Call for questions or concerns Assessment & Plan (10/15/2020 10:32 AM CDT): Continue to follow with ID Update me with any changes Assessment & Plan (08/04/2020 2:50 PM CEMENT WORKER): Continue to follow with ID Continue current regimen Assessment & Plan (03/25/2020 1:19 PM CDT): Continue to follow with ID Update me after the visit Call for questions Assessment & Plan (10/24/2019 9:55 AM CDT): Complete course of keflex Update her ID provider that she used it If symptoms worsen or change, let me know Continue supportive care Call for questions or concerns Lymphedema of arm 10/24/2019 Overview (08/04/2020): Last Assessment & Plan: With recurrent cellulitis Asymptomatic currently Call if she develops any symptoms Call for questions or concerns Last Assessment & Plan: Continue physical therapy Continue supportive care Assessment & Plan (05/01/2024 10:17 AM CDT): Chronic. With mild swelling in the left upper arm at this time. Advised to hold on physical therapy and using lymphedema sleeve until cellulitis symptoms have completely resolved. Assessment & Plan (12/22/2023 8:55 AM CDT): Chronic, stable Continue compression/supportive care Update me with any changes Assessment & Plan (11/30/2023 9:06 AM CDT): Chronic, stable Continue physical therapy Continue compression Assessment & Plan (11/08/2022 10:57 AM CDT): Chronic, slightly worse Will refer to PT [facility] Will attempt to get new machine after her evaluation Update me with any changes Assessment & Plan (10/27/2021 11:03 AM CDT): Continue to follow with PT Assessment & Plan (09/21/2021 11:19 AM CEMENT WORKER): Continue supportive care Continue to monitor for infectious Call for questions or concerns Assessment & Plan (05/27/2021 1:19 PM CDT): Continue supportive care Continue conpression Assessment & Plan (10/15/2020 10:34 AM CDT): Continue to follow with PT Continue her supportive/compression sleeve History of sepsis 07/03/2019 Assessment & Plan (11/30/2023 9:06 AM CDT): Acute, resolved Continue to monitor for symptoms To the ER if they occur Assessment & Plan (11/08/2022 10:57 AM CDT): Asymptomatic continue to monitor Assessment & Plan (10/27/2021 11:03 AM CDT): Encouraged to set up follow with ID Update me after the visit Call for questions or concerns Assessment & Plan (10/15/2020 10:32 AM CDT): Continue to follow with ID Update me with any changes Assessment & Plan (07/03/2019 12:53 PM CEMENT WORKER): Blood cultures were negative Complete antibiotics History of breast cancer 07/03/2019 Assessment & Plan (12/22/2023 8:54 AM CDT): Chronic, stable Managed by oncology Assessment & Plan (11/30/2023 9:05 AM CDT): Chronic, stable She is up-to-date on her mammograms Managed by Oncology Assessment & Plan (11/08/2022 10:56 AM CDT): Chronic, stable Up to date on mammograms Continue to follow with Oncology Assessment & Plan (10/27/2021 11:00 AM CDT): Continue to follow with her oncologist Assessment & Plan (10/15/2020 10:31 AM CDT): Continue to follow with oncology Update me with any changes Call for questions or concerns Assessment & Plan (12/05/2019 3:40 PM CDT): Continue to follow with oncology Update me with any changes Assessment & Plan (07/03/2019 12:57 PM CEMENT WORKER): With lymphedema Continue to follow with her breast specialist Call for questions or concerns Pure hypercholesterolemia 10/04/2018 Assessment & Plan (11/30/2023 9:06 AM CDT): Chronic, stable Continue pravastatin Assessment & Plan (11/08/2022 10:59 AM CDT): CVD 8.9% Will start pravastatin 10 mg daily Recheck labs in 6 weeks Call if s/sx worsen or do not improve Assessment & Plan (10/27/2021 11:04 AM CDT): Pt will get labs today Assessment & Plan (10/15/2020 10:33 AM CDT): CVD score 4.7% Continue to work on healthy changes Assessment & Plan (06/17/2020 1:30 PM CEMENT WORKER): Lab ordered Malignant neoplasm of lower- outer quadrant of left breast of female, estrogen receptor negative 03/14/2018 Cancer Staging:Clinical stage from 09/10/2015:Stage IIIA(cT1c, cN2a, cM0, G3, ER: Negative, HI: Negative, HER2: Positive) - Signed by Capo Young DO on 03/14/2018 Assessment & Plan (10/27/2021 11:03 AM CDT): In remission Continue to follow with oncology Rheumatoid arthritis 01/17/2017 Assessment & Plan (05/01/2024 10:16 AM CDT): Chronic. Stable. Continue to follow with Rheumatology who is managing methotrexate. Assessment & Plan (11/30/2023 9:06 AM CDT): Chronic, stable Managed by Rheumatology Continue current regimen Assessment & Plan (11/08/2022 11:00 AM CDT): Chronic, stable Continue to follow with rheum Continue current regimen Assessment & Plan (10/27/2021 11:04 AM CDT): Continue to follow with rheum Update me with any changes Assessment & Plan (10/15/2020 10:35 AM CDT): Continue to follow with rheum Continue current regimen Update me with any changes Call for questions Assessment & Plan (06/17/2020 1:27 PM CEMENT WORKER): Continue to follow with rheum Update me with any changes Call for questions or concerns Assessment & Plan (12/05/2019 3:41 PM CDT): Will put off work for 6 weeks Continue her current regimen Continue following with her specialist Call for questions or concerns Undifferentiated connective tissue disease 04/16 Assessment & Plan (11/30/2023 9:07 AM CDT): Chronic, stable Managed by Rheumatology Continue current regimen Assessment & Plan (11/08/2022 11:00 AM CDT): Chronic, stable Continue to follow with rheum Continue current regimen Assessment & Plan (10/27/2021 11:04 AM CDT): Continue to follow with rheum Update me with any changes Assessment & Plan (10/15/2020 10:35 AM CDT): Continue to follow with rheum Continue current regimen Update me with any changes Call for questions Systemic lupus erythematosus ([facility]/HCC) 5 Assessment & Plan (05/01/2024 10:16 AM CDT): Chronic. Stable. Continue to follow with Rheumatology who is managing methotrexate. Assessment & Plan (12/22/2023 8:55 AM CDT): Chronic, improved Dose of methotrexate adjusted Managed by rheumatology Update wv with any changes Assessment & Plan (11/30/2023 9:06 AM CDT): Chronic, stable Managed by Rheumatology Continue current regimen Assessment & Plan (11/08/2022 11:00 AM CDT): Chronic, stable Continue to follow with rheum Continue current regimen Assessment & Plan (10/27/2021 11:04 AM CDT): Continue to follow with rheum Update me with any changes Assessment & Plan (05/27/2021 1:20 PM CDT): Continue to follow with rheum Update me with any changes Call for questions or concerns Assessment & Plan (10/15/2020 10:35 AM CDT): Continue to follow with rheum Continue current regimen Update me with any changes Call for questions Assessment & Plan (08/04/2020 2:50 PM CEMENT WORKER): Continue to follow with rheum Update me with any changes Call for questions or concerns Assessment & Plan (06/17/2020 1:26 PM CEMENT WORKER): Off methotrexate Continue to follow with rheum Update me after the visit Assessment & Plan (03/25/2020 1:13 PM CDT): Continue to follow with rheum Update me with any changes Assessment & Plan (10/24/2019 9:53 AM CDT): Continue current regimen through rheum Continue to monitor symptoms If her office reopens, given her history, we may need to keep her off work Keep me updated Assessment & Plan (07/03/2019 12:55 PM CEMENT WORKER): Continue to follow with rheum Continue current regimen Call for questions or concerns High risk medication use 07/31/2014 Assessment & Plan (08/16/2024 12:23 PM CEMENT WORKER): Chronic, stable Managed by Rheumatology Last notes reviewed Assessment & Plan (11/30/2023 9:05 AM CDT): Chronic, stable Managed by Rheumatology Assessment & Plan (11/08/2022 10:56 AM CDT): Chronic, stable Continue to follow with rheum Assessment & Plan (10/27/2021 11:00 AM CDT): Continue to follow with rheum Update me with any changes Resolved Problems Problem Noted Date Diagnosed Date Resolved Date Acute URI 03/23/2021 05/27/2021 Assessment & Plan (03/23/2021 3:46 PM CDT): Discussed viral nature of illness, treat symptomatically Tylenol/ibuprofen as needed, and can use medicine like mucinex or robitussin to help with the cough Increase fluids, rest and handwashing Warm saltwater gargles Consider a hot drink with honey Saline rinses to nose at least twice daily Cool mist humidifier May use vicks vaporub on chest and feet as needed to help with cough Please call if symptoms change or worsen, to the ER for anything emergent Lymphedema of arm 10/24/2019 08/04/2020 Assessment & Plan (06/17/2020 1:28 PM CEMENT WORKER): Continue physical therapy Continue supportive care Assessment & Plan (03/25/2020 1:13 PM CDT): Continue to follow with oncology Update me with any changes Call for questions or concerns Assessment & Plan (12/05/2019 3:41 PM CDT): With recurrent cellulitis Asymptomatic currently Call if she develops any symptoms Call for questions or concerns Assessment & Plan (10/24/2019 9:54 AM CDT): Continue to wear compression sleeve Cellulitis of left upper extremity 07/03/2019 10/15/2020 Assessment & Plan (08/04/2020 2:50 PM CEMENT WORKER): Continue current regimen per ID Continue to monitor symptoms closely Update me with any changes Call for questions or concerns Assessment & Plan (06/17/2020 1:18 PM CEMENT WORKER): Antibiotics completed Continue prophylactic antibiotics Continue to follow with ID Update me with any changes Call for questions or concerns Assessment & Plan (03/25/2020 1:12 PM CDT): Recurrent Continue to follow with ID Continue to monitor closely Call for questions or concerns Assessment & Plan (07/03/2019 12:53 PM CEMENT WORKER): Recurrent Complete antibiotics Will refer to ID given the severity of episodes Anything emergent, to the er Markie for questions or concerns CR (acute kidney injury) 07/03/2019 Assessment & Plan (07/03/2019 12:54 PM CEMENT WORKER): Resolved with IV fluids Cellulitis of left upper extremity 07/03/2019 08/04/2020 Overview (08/04/2020): Last Assessment & Plan: Recurrent Complete antibiotics Will refer to ID given the severity of episodes Anything emergent, to the er Markie for questions or concerns Last Assessment & Plan: Antibiotics completed Continue prophylactic antibiotics Continue to follow with ID Update me with any changes Call for questions or concerns Rheumatoid arthritis 01/17/2017 021 Overview (08/04/2020): Last Assessment & Plan: Will put off work for 6 weeks Continue her current regimen Continue following with her specialist Call for questions or concerns Last Assessment & Plan: Continue to follow with rheum Update me with any changes Call for questions or concerns Systemic lupus erythematosus (CMS/HCC) 07/31/2014 08/04/2020 Overview (08/04/2020): Last Assessment & Plan: Continue current regimen through rheum Continue to monitor symptoms If her office reopens, given her history, we may need to keep her off work Keep me updated Last Assessment & Plan: Off methotrexate Continue to follow with rheum Update me after the visit Encounters Date Type Department Care Team Description 08/16/2024 10:45 AM CEMENT WORKER Office Visit [facility] [address] [place] [phone] Tarsha Maxwell MD Lymphedema of arm (Primary Dx); Malignant neoplasm of lower-outer quadrant of left breast of female, estrogen receptor negative (HCC); Rheumatoid arthritis involving multiple sites with positive rheumatoid factor (CMS/HCC) (HCC); Age-related osteoporosis without current pathological fracture; Strep throat exposure; High risk medication use 06/18/2024 Orders Only [facility] [address] [place] [phone] Beth Quintana PA 06/18/2024 Nurse Triage [facility] [address] [phone] Tarsha Maxwell MD 05/29/2024 9:40 AM CEMENT WORKER Office Visit [facility] [address] [facility] [address] [place] [address] Mary Crowley MD Thumb pain, right (Primary Dx); High risk medication use; Rheumatoid arthritis involving multiple sites with positive rheumatoid factor (CMS/HCC) (HCC) from Last 3 Months Immunizations Name Administration Dates Next Due Influenza, Quadrivalent, Katerin l Culture-based MDCK, Preservative Free, Antibiotic Free, Intramuscular 05/28/2019,06/21/2018 Influenza, Unspecified 08/16/2024(Deferr ed: Patient Refused),04/24/2024(Deferred: Patient Refused),04/24/2023(Deferred: Patient Refused),04/24/2023(Deferred: Patient Refused),04/24/2023(Deferred: Patient Refused),04/24/2023(Deferred: Patient Refused),04/24/2023(Deferred: Patient decision),04/24/2022(Deferred: Patient Refused),04/24/2022(Deferred: Patient Refused),04/24/2022(Deferred: Patient Refused),04/24/2022(Deferred: Patient Refused),04/24/2021(Deferred: Patient Refused),04/24/2020 Pfizer SARS-CoV-2 Monovalent Vaccination (12+ Yrs) PURPLE 10/19/2020 Pneumococcal Conjugate PCV 13 05/28/2019 Pneumococcal Conjugate Pcv20 11/08/2022 Tdap 10/24/2019 ZOSTER Recombinant 08/25/2021,05/18/2021 Surgical History Surgery Date Site/Laterality Comments OTHER SURGICAL HISTORY 07/25/2010 - 07/24/2011 mole removal from breast OTHER SURGICAL HISTORY 07/25/2010 - 07/24/2011 D&C TONSILLECTOMY 07/25/1968 - 07/24/1969 Tonsillectomy BREAST LUMPECTOMY Left Twenty-three lymph nodes also removed COLONOSCOPY Medical History Medical History Date Comments Depression Depression Anxiety disorder Anxiety History of breast cancer HER-2 p ostdeepali, ER negative, HI negative, now in remission Lupus History of neutropenia Drug-andrew margaret Cellulitis Varicella Family History Medical History Relation Name Comments Abdominal Aortic Aneurysm Father Diabetes Father Heart disease Father Schizophrenia Mother Alcohol abuse Other 1 Family history of Alcoholism; Breast cancer Other 2 Family history of Cancer -breast; Diabetes type II Other 3 Family hist ory of Diabetes -Type 2; Heart disease Other 4 Family history of Heart disease; Hypertension Other 5 Family history of Hypertension; Stroke Other 6 Family history of Stroke; Relation Name Status Comments Father Alive Maternal Grandfather Maternal Grandmother Mother Alive Other 1 Other 2 Other 3 Other 4 Other 5 Other 6 Paternal Grandfather Paternal Grandmother Social History Tobacco Use Types Packs/Day Years Used Date Smoking Tobacco: Former Cigarettes 0.1 17 0 07/25/1969 - 07/25/1986 Smokeless Tobacco: Never Tobacco Cessation:Counseling Given: Not Answered Alcohol Use Standard Drinks/Week Comments No 0 (1 standard drink = 0.6 oz pur e alcohol) AUDIT-C Answer Date Recorded Q1: How often do you have a drink containing alcohol? Never 08/16/2024 Q2: How many drinks containi ng alcohol do you have on a typical day when you are drinking? Patient does not drink Q3: How often do you have si x or more drinks on one occasion? Never 08/16/2024 PHQ-2 Answer Date Recorded PHQ-2 Total Score (If total score is 3 or more points, staff should administer the PHQ-9) 0 08/16/2024 Comments No Sex and Gender Information Value Date Recorded Sex Assigned at Not on file Legal Sex Female 10:36 AM CEMENT WORKER Gender Identity Female 06/21/2018 1:11 PM CEMENT WORKER Sexual Orientation Not on file Obstetrics History Last Filed Vital Signs Vital Sign Reading Time Taken Comments Blood Pressure 112/60 08/16/2024 10:51 AM CEMENT WORKER Pulse 80 08/16/2024 10:51 AM CEMENT WORKER Temperature 36.3 ??C (97.4 ??F) 08/16/2024 10:[address] Respiratory Rate 12 08/16/2024 10:51 AM CEMENT WORKER Oxygen Saturation 98% 08/16/2024 10:51 AM CEMENT WORKER Inhaled Oxygen Concentration - - Weight 71.2 kg (157 lb) 08/16/2024 10:51 AM CEMENT WORKER Height 165.1 cm (5' 5 ) 08/16/2024 10:51 AM CEMENT WORKER Body Mass Index 26.13 08/16/2024 10:51 AM CEMENT WORKER Plan of Treatment Health Maintenance Due Date Last Done Comments Hepatitis B Screening 1973 Covid-19 Vaccine (3 - Pfizer risk series) 12/07/2020 11/09/2020, 10/19/2020 Influenza Vaccine (#1) 2024 , 05/28/2019, 06/21/2018 Fall Risk Assessment 11/29/2024 11/30/2023, 11/08/2022, 10/27/2021, Additional history exists Well Visit 65+ 11/29/2024 11/30/2023, 02/2024, 11/08/2022, Additional history exists Breast Cancer Screening-Mammogram 08/15/2025 08/15/2024, 06/21/2023, 03/31/2022, Additional history exists Depression Screening 08/16/2025 08/16/2024, 05/01/2024, 03/13/2024, Additional history exists Osteoporosis Screening-Bone Density Scan 05/01/2026 05/01/2024, 04/13/2022 DTaP/Tdap/Td Vaccine (2 - Td or Tdap) 10/23/2029 10/24/2019 Colon Cancer Screening-Colonoscopy 06/22/2031 06/22/2021 Hepatitis C Screening Completed 10/06/2020 Colon Cancer Screening-CT Colonography Discontinued 06/22/2021 Colon Cancer Screening-DNA Stool Discontinued 06/22/20 Colon Cancer Screening-FIT Discontinued 06/22/2021 Colon Cancer Screening-Sigmoidoscopy Discontinued 06/22/2021 Zoster Vaccine Completed 08/25/2021, 05/18/2021 Pneumococcal vaccine 65+ Completed 11/08/2022, 10/2018 Procedures Procedure Name Priority Date/Time Associated Diagnosis Comments HM MAMMOGRAPHY Routine 08/15/2024 CBC WITH AUTO DIFFERENTIAL Routine 07/02/2024 1:05 PM CEMENT WORKER High risk medication use COMPREHENSIVE METABOLIC PANEL Routine 07/02/2024 1:05 PM CEMENT WORKER High risk medication use DEXA SCAN Routine 05/01/2024 COLONOSCOPY Routine 06/22/2021 HEPATITIS C ANTIBODY Routine 10/06/2020 9:26 AM CDT Need for hepatitis C screening test from Last 3 Months or Most Recently Relevant to Health Maintenance Results * MAMMOGRAPHY (08/15/2024) [facility] Mammography Normal us Historical Provider HEALTH MAINTENANCE Final Result * CBC with auto differential (07/02/2024 1:05 PM CEMENT WORKER) [facility] WBC 4.3 3.4 - 10.8 x10E3/uL [facility] - 01 RBC 3.91 3.77 - 5.28 x10E6/uL [facility] - 01 Hgb 12.0 11.1 - 15.9 g/dL [facility] - 01 Hct 36.4 34.0 - 46.6 % [facility] - 01 MCV 93 79 - 97 fL [facility] - 01 MCH 30.7 26.6 - 33.0 pg [facility] - 01 MCHC 33.0 31.5 - 35.7 g/dL [facility] - 01 Rdw 13.2 11.7 - 15.4 % [facility] - 01 Platelets 303 150 - 450 x10E3/uL [facility] - 01 Neutrophils pct 56 Not Estab. % [facility] - 01 Lymphs pct 29 Not Estab. % [facility] - 01 Monocytes pct 12 Not Estab. % [facility] - 01 Eosinophils pct 2 Not Estab. % [facility] - 01 Basophil pct 1 Not Estab. % [facility] - 01 Neutrophil abs 2.4 1.4 - 7.0 x10E3/uL [facility] - 01 Lymphs (Absolute) 1.2 0.7 - 3.1 x10E3/uL [facility] - 01 Monocyte abs 0.5 0.1 - 0.9 x10E3/uL [facility] - 01 Eosinophils, abs 0.1 0.0 - 0.4 x10E3/uL [facility] - 01 Basophils, abs 0.1 0.0 - 0.2 x10E3/uL [facility] - 01 Immature Granulocytes 0 Not Estab. % [facility] - 01 Immature Grans (Abs) 0.0 0.0 - 0.1 x10E3/uL [facility] - 01 Blood 07/02/2024 1:05 PM CEMENT WORKER 07/02/2024 Narrative [facility] - 07/03/2024 7:09 AM CEMENT WORKER Performed at: ??01 - [facility] [address] ??[id number] Palliative Medicine Physician: Tez Christianson PhD, Phone: ??[phone] us Mary Crowley MD LAB BLOOD ORDERABLES Final Result [facility] - 01 * Comprehensive metabolic panel (07/02/2024 1:05 PM CEMENT WORKER) Glucose 86 70 - 99 mg/dL [facility] - 01 BUN 10 8 - 27 mg/dL [facility] - 01 Creatinine, Serum 0.76 0.57 - 1.00 mg/dL [facility] - 01 eGFR 85 >59 mL/min/1.73 [facility] - 01 BUN/creat ratio 13 12 - 28 [facility] - 01 Sodium 140 134 - 144 mmol/L [facility] - 01 Potassium, sr 4.2 3.5 - 5.2 mmol/L [facility] - 01 Chloride 102 96 - 106 mmol/L [facility] - 01 CO2 25 20 - 29 mmol/L [facility] - 01 Calcium 9.0 8.7 - 10.3 mg/dL [facility] - 01 Protein, sr 6.3 6.0 - 8.5 g/dL [facility] - 01 Albumin 4.4 3.9 - 4.9 g/dL [facility] - 01 Globulin, Total 1.9 1.5 - 4.5 g/dL [facility] - 01 Bilirubin, Total 0.3 0.0 - 1.2 mg/dL [facility] - 01 Alk phos 66 44 - 121 IU/L [facility] - 01 AST 18 0 - 40 IU/L [facility] - 01 ALT 14 0 - 32 IU/L [facility] - 01 Blood 07/02/2024 1:05 PM CEMENT WORKER 07/02/2024 Narrative [facility] - 07/03/2024 10:10 AM CEMENT WORKER Performed at: ??01 - [facility] ??[id number] Palliative Medicine Physician: Tez Christianson PhD, Phone: ??[phone] Mary Crowley MD LAB BLOOD ORDERABLES Final Result [facility] - 01 * HM DEXA SCAN (05/01/2024) Historical Provider HEALTH MAINTENANCE Final Result * Colonoscopy (06/22/2021) Anatomical Region Laterality Modality Other Historical Provider ENDOSCOPY PROCEDURES Lucy l Result * Hepatitis C antibody (10/06/2020 9:26 AM CDT) Hep C Ab <0.1 0.0 - 0.9 s/co ratio [facility] - 01 Comment: ?Negative: ? < 0.8 ? Indeterminate: 0.8 - 0.9 ?Positive: ? > 0.9 The CDC recommends that a positive HCV antibody result be followed up with a HCV Nucleic Acid Amplification test (957729). Blood specimen (specimen) 10/06/2020 9:26 AM CDT 10/06/2020 Narrative [facility] - 10/07/2020 8:12 AM CDT Performed at: ??01 - [facility] ??[id number] Palliative Medicine Physician: Tez Christianson PhD, Phone: ??[phone] Tarsha Maxwell MD LAB MICROBIOLOGY - GENERAL ORDERABLES Final Result [facility] - 01 from Last 3 Months or Most Recently Relevant to Health Maintenance Insurance [facility] MEDICARE [facility]ICARE [facility] MED[facility]ARE [facility] Member Subscriber Plan / Payer (Ef fective 2020-Present) Name:Brittni Benitez Relation to Subscriber:Self Name:Brittni Benitez Payer ID:[id number] Group ID:Not on file Type:COMMERCIAL Address: [address] [place] [phone] Care Teams Voice Data Communications Engineer Relationship Specialty Start Date End Date Tarsha Maxwell MD [address] [place] [address] PCP - General 09/01/17 Capo Young DO [address] [address] Medical Oncologist/Hide And Skin Processing Worker Hematology and Oncology 03/08/18 Ciara Jones MD [address] [place] [address] [phone] Referring Physician Radiation Oncology 03/27/19
--- OUTSIDE RECORDS SUMMARY | 2024-08-17 02:08 | XMS_ITS | Encounter Summary ---
Author Organization [facility] Healthcare Address [address] [place] [address] Care Team Providers Care Director Dietetics Department Name Role Phone Tarsha Maxwell MD Primary Care Provi ronald Capo Young DO Unavailable [phone] Ciara Jones MD Unavailable [phone] Reason for Visit * Reason Onset Date Comments Referral Request 12/05/2023 Encounter Details Date Type Department Care Team (Late st Contact Info) Description 12/05/2023 Telephone [facility] Family Medicine [address] [address] Tarsha Maxwell MD [address] [address] Referral Request Social History Tobacco Use Types Packs/Day Years Used Date Smoking Tobacco: Former Cigarettes 0.1 17 0 07/25/1969 - 07/25/1986 Smokeless Tobacco: Never Alcohol Use Standard Drinks/Week Comments No 0 (1 standard drink = 0.6 oz pur e alcohol) AUDIT-C Answer Date Recorded Q1: How often do you have a drink containing alcohol? Never 11/30/2023 Q2: How many drinks containi ng alcohol do you have on a typical day when you are drinking? Patient does not drink Q3: How often do you have si x or more drinks on one occasion? Never 11/30/2023 PHQ-2 Answer Date Recorded PHQ-2 Total Score (If total score is 3 or more points, staff should administer the PHQ-9) 2 11/30/2023 Comments No Sex and Gender Information Value Date Recorded Sex Assigned at Not on file Legal Sex Female 10:36 AM IT ASSISTANT Gender Identity Female 06/21/2018 1:11 PM IT ASSISTANT Sexual Orientation Not on file documented as of this encounter Miscellaneous Notes * Telephone Encounter - Leia Vidales - 12/06/2023 8:08 AM CDT LVM informing patient of completed request * Telephone Encounter - Leia Vidales - 12/06/2023 8:06 AM CDT Clinicals faxed for scheduling documented in this encounter Plan of Treatment Not on file documented as of this encounter Visit Diagnoses Not on filedocumented in this encounter Care Teams Director Dietetics Department Relationship Specialty Start Date End Date Tarsha Maxwell MD [address] [place], [place] [phone] PCP - General 09/01/17 Capo Young DO [address] [place] [phone] Medical Oncologist/Lumber Material Handler Hematology and Oncology 03/08/18 Ciara Jones MD [address] [place] [address] [phone] Referring Physician Radiation Oncology 03/27/19 documented as of this encounter
--- OUTSIDE RECORDS SUMMARY | 2024-08-17 02:08 | XMS_ITS | Patient Health Summary ---
Author Organization [facility] Address [address] [facility] [place] [address] Care Team Providers Care Auto Parker Name Role Phone Unavailable Primary Care Provider Unavailabl e Note from [facility],non-owned Affiliates and Associated Physician Practices is amultiple site organization consisting of ambulatory clinics and hospital sitesin [place], [place], [place] and [place]. This disclosure is being madepursuant to the Care Everywhere program and may not contain all information available regarding this patient. Last updated 18.[facility] Social History Tobacco Use Types Packs/Day Years Used Date Smoking Tobacco: Never Assessed Sex and Gender Information Value Date Recorded Sex Assigned at Not on file Gender Identity Not on file Sexual Orientation Not on file Procedures * DERMATOPATHOLOGY(Performed 11/03/2020) Results * DERMATOPATHOLOGY (11/03/2020 12:00 AM CDT) Case Report Dermatopathology Report ? Case: [id number] ? Authorizing Provider: ??Tarsha Maxwell MD ?? Collected: ? 11/03/2020 12:00 AM ? Ordering Location: ? [facility] Care DermPath Lab ?Received: ?11/06/2020 08:56 AM ? Pathologist: ? Germaine Gillis MD ? Specimen: ?Skin, right back ? 4:11 PM [facility] DERMATOPATHOLOGY LABORATORY Final Diagnosis Specimen A. SKIN, right back: SUPERFICIAL PERIVASCULAR LYMPHOCYTIC INFILTRATE (L98.9) POST-INFLAMMATORY PIGMENT ALTERATION (L81.9) (see microscopic description and comment) 4:11 PM [facility] DERMATOPATHOLOGY LABORATORY Clinical History Dermatitis. 4:11 PM [facility] DERMATOPATHOLOGY LABORATORY Gross Description Specimen A: Received is one formalin filled container labeled with the patient's name and designated right back. The specimen consists of a punch biopsy measuring [id number], bisected and submitted with a [id number] fragment. Jar 0. 4:11 PM [facility] DERMATOPATHOLOGY LABORATORY Microscopic Description Specimen A. SKIN, right back: The epidermis is unremarkable. In the dermis, there is a perivascular, mainly lymphohistiocytic inflammatory infiltrate. Eosinophils are not seen. Sections show abundant melanin within melanophages around the superficial vascular plexus, highlighted by Reg bere stain. Grocott's methenamine silver (GMS) stain fails to highlight fungal elements in the available sections. Additional deeper sections were obtained and reviewed. COMMENT: The overall histologic features are somewhat nonspecific, and can be seen in a resolved lichenoid dermatitis. Notalgia paresthetica was also considered. Clinical correlation is recommended. 4:11 PM [facility] DERMATOPATHOLOGY LABORATORY Disclaimer An external and internal positive and negative controls are appropriate for the histochemical, immunohistochemical and immunofluorescence stain(s) in this case (if any), except where stated explicitly. The performance characteristics of the stain(s) cited in this report were developed and its performance characteristic determined by the Dermatopathology Laboratory at [facility], directed by Dr. Soy Erazo. These tests need not be, and therefore are not, approved by the [place] Food and Drug Administration. The tests are used for clinical purposes. Billing Codes Specimen Charges Stain Charges 45584 1 56315 80725 1 1 1 4:11 PM CDT DERMATOPATHOLOGY LABORATORY Embedded Images 1 4:11 PM CDT DERMATOPATHOLOGY LABORATORY Pathology/Cytolog y TISSUE SPECIMEN FROM SKIN / Unknown 11/03/2020 11/06/2020 8:56 AM CDT Tarsha Maxwell MD LAB - PATHOLOGY/C YTOLOGY ORDERABLES DERMATOPATHOLOGY LABORATORY [facility] - Department of Dermatology [facility] [address] [place] [address], [address] [phone]
--- OUTSIDE RECORDS SUMMARY | 2024-08-17 02:08 | XMS_ITS | Encounter Summary ---
Author Organization [facility] Healthcare Address [address] [place] [address] Care Team Providers Care Autism Motor Specialist Name Role Phone Tarsha Maxwell MD Primary Care Provi ronald Capo Young DO Unavailable [phone] Ciara Jones MD Unavailable [phone] Reason for Visit * Reason Onset Date Comments Finger Pain 06/18/2024 Encounter Details Date Type Department Care Team (Late st Contact Info) Description 06/18/2024 Nurse Triage [facility] Family Medicine [address] [phone] Tarsha Maxwell MD [address] [address] Social History Tobacco Use Types Packs/Day Years Used Date Smoking Tobacco: Former Cigarettes 0.1 17 0 07/25/1969 - 07/25/1986 Smokeless Tobacco: Never Alcohol Use Standard Drinks/Week Comments No 0 (1 standard drink = 0.6 oz pur e alcohol) AUDIT-C Answer Date Recorded Q1: How often do you have a drink containing alcohol? Never 05/29/2024 Q2: How many drinks containi ng alcohol do you have on a typical day when you are drinking? Patient does not drink Q3: How often do you have si x or more drinks on one occasion? Never 05/29/2024 PHQ-2 Answer Date Recorded PHQ-2 Total Score (If total score is 3 or more points, staff should administer the PHQ-9) 0 05/01/2024 Comments No Sex and Gender Information Value Date Recorded Sex Assigned at Not on file Legal Sex Female 10:36 AM METAL FURNITURE GLAZIER Gender Identity Female 06/21/2018 1:11 PM METAL FURNITURE GLAZIER Sexual Orientation Not on file documented as of this encounter Miscellaneous Notes * Telephone Encounter - Frances Carmen MA - 06/18/2024 3:15 PM CST Noted, called and notified patient. She wants to go ahead and cancel appointment for tomorrow. L FURNITURE GLAZIER * Telephone Encounter - Ciara Street RN - 06/18/2024 12:59 PM CST Reason for Disposition Redness and painful skin around fingernail (cuticle, nailfold) Protocols used: Finger [id number] Patient calling with hangnail left thumb with redness, swelling, and tenderness. Patient has history of cellulitis with hospitalization to the left arm. Denies fever or pus. Patient took old dose of doxycycline last night and this am. Appointment made with Krystal Fay for 06/19/2024. Care advice given and call back instructions given regarding worsening of symptoms. Pt verbalizes understanding. Action Needed: patient is requesting doxycycline for swelling and redness to the left thumb due to hangnail. Has history of cellulitis to left arm. Please advise if antibiotic called out and patient can cancel appointment for tomorrow. L FURNITURE GLAZIER * Telephone Encounter - Ciara Street RN - 06/18/2024 12:42 PM CST Regarding: moderate pain, red, puffy thumb hangnail ----- Message from Rosibel Hale sent at 06/18/2024 12:42 PM METAL FURNITURE GLAZIER ----- Symptom Based Call Chief Complaint(s): left thumb red, puffy hangnail (mild to moderate) Duration: yesterday What type of symptom(s) is the patient experiencing? Red Flag. Is the patient concerned they are experiencing a medical emergency requiring an ambulance? No Additional Comments: Prone to cellulitis on this hand/arm and is worried it will become that without antibiotic. No appointment available, requesting prescription. Does message need to be routed? Yes-Action Needed L FURNITURE GLAZIER documented in this encounter Plan of Treatment Not on file documented as of this encounter Visit Diagnoses Not on filedocumented in this encounter Care Teams Autism Motor Specialist Relationship Specialty Start Date End Date Tarsha Maxwell MD [address] [place], [place] [phone] PCP - General 09/01/17 Capo Young DO [address] [place] [phone] Medical Oncologist/Tie Worker Hematology and Oncology 03/08/18 Ciara Jones MD [address] [place] [address] [phone] Referring Physician Radiation Oncology 03/27/19 documented as of this encounter
--- OUTSIDE RECORDS SUMMARY | 2024-08-17 02:08 | XMS_ITS | Clinical Summary ---
Author Organization [facility] Address [facility] [place] [address] [place] [address] Care Team Providers Care Rn Oncology Name Role Phone Tarsha Maxwell MD Primary Care Provider Allergies Active Allergy Reactions Criticality Noted Date Comments Clindamycin Rash Low 10/31/2018 Iodine Rash Medium 08/18/2016 Contrast dye sure of, unsure about topical iodine Levofloxacin Rash Low 10/31/2018 Hydroxychloroquine Rash Low 10/31/2018 Medications nortriptyline 50 MG capsule Take 100 mg by mouth nightly. Total dose = 110 mg HS (uses 50 mg and 10 mg capsules) Active vitamin D2, ergocalciferol, 81434 UNITS capsule Take 2,000 Units by mouth daily. Takes every 4 days Active clonazePAM 0.5 MG tablet Take 0.25 mg by mouth 2 (two) times daily as needed for Anxiety. Active folic acid 1 MG tablet Take 2 mg by mouth nightly at bedtime. 1 Active nortriptyline 10 MG capsule Take 1 capsule (10 mg total) by mouth nightly. Total daily dose = 110 mg HS (uses 50 mg and 10 mg capsules) 1 Active methotrexate (TREXALL) 2.5 MG tablet Take 4 tablets (10 mg total) by mouth once a week. Every Tuesday starting Tuesday increased to 6 tablets 4 Active pravastatin (PRAVACHOL) 10 MG tablet Take 1 tablet (10 mg total) by mouth daily. 3 Active Active Problems Problem Noted Date Diagnosed Date Change in bowel function 05/14/2021 Overview (05/14/2021): Added automatically from request for surgery [id number] Chronic constipation 10/06/2020 Overview (05/20/2021): Last Assessment & Plan: Continue miralax Keep appointment with Dr Yates Call for questions or concerns Anxiety 08/04/2020 Overview (05/20/2021): Last Assessment & Plan: Continue to follow with her psychiatrist Continue current regimen Update me with changes Lymphedema of arm 10/24/2019 Overview (07/28/2020): Last Assessment & Plan: With recurrent cellulitis Asymptomatic currently Call if she develops any symptoms Call for questions or concerns Last Assessment & Plan: Continue physical therapy Continue supportive care Recurrent cellulitis 10/24/2019 Overview (03/13/2020): Last Assessment & Plan: Complete course of keflex Update her ID provider that she used it If symptoms worsen or change, let me know Continue supportive care Call for questions or concerns Recurrent cellulitis 10/24/2019 Overview (05/20/2021): Last Assessment & Plan: Continue to follow with ID Update me with any changes Lymphedema of arm 10/24/2019 Overview (05/20/2021): Last Assessment & Plan: With recurrent cellulitis Asymptomatic currently Call if she develops any symptoms Call for questions or concerns Last Assessment & Plan: Continue physical therapy Continue supportive care Last Assessment & Plan: Continue to follow with PT Continue her supportive/compression sleeve Malignant tumor of breast ([facility]/HCC) 03/2020 Cellulitis of left upper extremity 07/03/2019 Overview (07/28/2020): Last Assessment & Plan: Recurrent Complete antibiotics Will refer to ID given the severity of episodes Anything emergent, to the er Marike for questions or concerns Last Assessment & Plan: Antibiotics completed Continue prophylactic antibiotics Continue to follow with ID Update me with any changes Call for questions or concerns History of breast cancer 07/03/2019 Overview (03/13/2020): Last Assessment & Plan: Continue to follow with oncology Update me with any changes History of sepsis 07/03/2019 Overview (03/13/2020): Last Assessment & Plan: Blood cultures were negative Complete antibiotics History of breast cancer 07/03/2019 Overview (05/20/2021): Last Assessment & Plan: Continue to follow with oncology Update me with any changes Call for questions or concerns History of sepsis 07/03/2019 Overview (05/20/2021): Last Assessment & Plan: Continue to follow with ID Update me with any changes Sepsis ([facility]) 06/23/2019 Pure hypercholesterolemia 10/04/2018 Overview (07/28/2020): Last Assessment & Plan: Lab ordered Pure hypercholesterolemia 10/04/2018 Overview (05/20/2021): Last Assessment & Plan: CVD score 4.7% Continue to work on healthy changes Malignant neoplasm of lower- outer quadrant of left breast of female, estrogen receptor negative ([facility]) 03/14/2018 Rheumatoid arthritis ([facility]) 7 Overview (07/28/2020): Last Assessment & Plan: Will put off work for 6 weeks Continue her current regimen Continue following with her specialist Call for questions or concerns Last Assessment & Plan: Continue to follow with rheum Update me with any changes Call for questions or concerns Rheumatoid arthritis ([facility]) 7 Overview (05/20/2021): Last Assessment & Plan: Continue to follow with rheum Continue current regimen Update me with any changes Call for questions Undifferentiated connective tissue disease ([facility]) 04/16/2015 Undifferentiated connective tissue disease ([facility]) 04/16/2015 Overview (05/20/2021): Last Assessment & Plan: Continue to follow with rheum Continue current regimen Update me with any changes Call for questions High risk medication use 07/31/2014 Systemic lupus erythematosus ([facility]) 0 07/31/2014 Overview (07/28/2020): Last Assessment & Plan: Continue current regimen through rheum Continue to monitor symptoms If her office reopens, given her history, we may need to keep her off work Keep me updated Last Assessment & Plan: Off methotrexate Continue to follow with rheum Update me after the visit Systemic lupus erythematosus ([facility]) 0 07/31/2014 Overview (05/20/2021): Last Assessment & Plan: Continue to follow with rheum Continue current regimen Update me with any changes Call for questions Resolved Problems Problem Noted Date Diagnosed Date Resolved Date Cellulitis 03/03/2019 12/05/2023 Encounters Date Type Department Care Team Description 07/27/[address] [facility] [place] [place] [address] Kari Dorado OT 06/18/2024 9:00 AM TOW TRUCK DISPATCHER - 06/18/2024 11:59 PM TOW TRUCK DISPATCHER Hospital Encounter [facility] [place] [place] [address] Tarsha Maxwell MD Mangaldas, Shana A, OT Edema Discharge Disposition: Home or Self Care (Routine Discharge) 06/18/2024 Travel 06/11/2024 9:00 AM TOW TRUCK DISPATCHER - 06/11/2024 11:59 PM TOW TRUCK DISPATCHER Hospital Encounter [facility] [place] [address] Tarsha Maxwell, Kari Will, OT Edema Discharge Disposition: Home or Self Care (Routine Discharge) 06/11/2024 Travel 06/04/2024 12:41 PM TOW TRUCK DISPATCHER - 06/04/2024 11:59 PM TOW TRUCK DISPATCHER Hospital Encounter [facility] [place] [address] Tarsha Maxwell, Kari Will, OT Edema Discharge Disposition: Home or Self Care (Routine Discharge) 06/04/2024 Travel 05/30/2024 12:41 PM TOW TRUCK DISPATCHER - 05/30/2024 11:59 PM TOW TRUCK DISPATCHER Hospital Encounter [facility] [place] [address] Tarsha Maxwell, Kari Will, OT Edema Discharge Disposition: Home or Self Care (Routine Discharge) 05/30/2024 Travel 05/24/2024 12:58 PM CDT - 05/24/2024 11:59 PM CDT Hospital Encounter [facility] [place] [address] Tarsha Maxwell, Kari Will, OT Edema Discharge Disposition: Home or Self Care (Routine Discharge) 05/24/2024 Travel from Last 3 Months Immunizations Name Administration Dates Next Due Fluzone 6 Months+ Quad (0.5 mL Prefilled Syringe) 07/29/2020(Deferred: Patient/family declined) Family History Medical History Relation Comments Heart Disease Father Depression Mother Relation Status Comments Father Mother Social History Tobacco Use Types Packs/Day Years Used Date Smoking Tobacco: Former Cigarettes Q uit: 1986 Smokeless Tobacco: Never Tobacco Cessation:Counseling Given: No Alcohol Use Standard Drinks/Week Comments No 0 (1 standard drink = 0.6 oz pur e alcohol) B1300 Health Literacy Answer Date Recor ded How often do you need to hav e someone help you when you read instructions, pamphlets, or other written material from your doctor or pharmacy? Never 12/02/2023 [facility] Utilities Answer Date Recorded In the past 12 months has th e [employer], gas, oil, or water [employer] threatened to shut off services in your home? Patient declined 12/02/2023 Humiliation, Afraid, Rape, and Kick questionnair e Answer Date Recorded Within the last year, have y ou been afraid of your partner or ex-partner? Patient declined 12/02/2023 Within the last year, have y ou been humiliated or emotionally abused in other ways by your partner or ex-partner? Patient declined 12/02/2023 Within the last year, have y ou been kicked, hit, slapped, or otherwise physically hurt by your partner or ex-partner? Patient declined 12/02/2023 Within the last year, have y ou been raped or forced to have any kind of sexual activity by your partner or ex-partner? Patient declined 12/02/2023 Social Connection and Isolat ion Panel [NHANES] Answer Date Recorded In a typical week, how many times do you talk on the phone with family, friends, or neighbors? More than three times a week 12/02/2023 How often do you get togethe r with friends or relatives? Once a week 12/02/2023 How often do you attend chur or jainism services? More than 4 times per year 12/02/2023 Do you belong to any clubs o r organizations such as islam groups, unions, fraternal or athletic groups, or school groups? Patient declined 12/02/2023 How often do you attend meet ings of the clubs or organizations you belong to? Patient declined 12/02/2023 Marital Status Not on file 12/02/2023 AUDIT-C Answer Date Recorded Q1: How often do you have a drink containing alc ohol? Patient declined 12/02/2023 Q2: How many drinks containi ng alcohol do you have on a typical day when you are drinking? Patient declined 12/02/2023 Q3: How often do you have si x or more drinks on one occasion? Patient declined 12/02/2023 Overall Financial Resource Strain (CARDIA) Answe r Date Recorded How hard is it for you to pa y for the very basics like food, housing, medical care, and heating? Patient declined 12/02/2023 PHQ-2 Answer Date Recorded PHQ-2 Score - If the patient scores above 3, please move on to questions 3-9 0 04/30/2021 [facility] - Occupational Stress Questionnaire Answer Date Recorded Do you feel stress - tense, restless, nervous, or anxious, or unable to sleep at night because your mind is troubled all the time - these days? Only a little 12/02/2023 Exercise Vital Sign Answer Date Recorde d On average, how many days pe r week do you engage in moderate to strenuous exercise (like a brisk walk)? 4 days 12/02/2023 On average, how many minutes do you engage in exercise at this level? 40 min 12/02/2023 Hunger Vital Sign Answer Date Recorded Within the past 12 months, y ou worried that your food would run out before you got the money to buy more. Patient declined Within the past 12 months, t he food you bought just didn't last and you didn't have money to get more. Patient declined 04/2024 PRAPARE - Transportation Answer Date Re corded In the past 12 months, has l ack of transportation kept you from medical appointments or from getting medications? Patient declined 12/02/2023 In the past 12 months, has l ack of transportation kept you from meetings, work, or from getting things needed for daily living? Patient declined 12/02/2023 Housing Stability Vital Sign Answer Hari e Recorded In the last 12 months, was t here a time when you were not able to pay the mortgage or rent on time? Patient declined 12/02/19 24 In the past 12 months, how m any times have you moved where you were living? 1 12/02/2023 At any time in the past 12 m [facility], were you homeless or living in a assisted (including now)? Patient declined 12/02/2023 Comments No Sex and Gender Information Value Date Recorded Sex Assigned at Female 05/20/2021 5:22 PM CDT Legal Sex Female 8:06 PM CDT Gender Identity Female 05/20/2021 5:22 PM CDT Sexual Orientation Not on file Last Filed Vital Signs Vital Sign Reading Time Taken Comments Blood Pressure 103/54 12/05/2023 8:10 AM CDT Pulse 68 12/05/2023 8:10 AM CDT Temperature 36.5 ??C (97.7 ??F) 12/05/2023 8:10 AM CD T Respiratory Rate 18 12/05/2023 8:10 AM CDT Oxygen Saturation 98% 12/05/2023 8:10 AM CDT Inhaled Oxygen Concentration - - Weight 74.7 kg (164 lb 10.9 oz) 12/05/2023 3:02 AM CDT Height 165.1 cm (5' 5 ) 12/01/2023 7:00 PM CDT Body Mass Index 27.4 12/01/2023 7:00 PM CDT Plan of Treatment Health Maintenance Due Date Last Done Comments Hepatitis C 1973 Mammogram Screening 1995 Annual Medicare Wellness Visit 02/07/2020 Dexa Scan (General) 02/07/2020 COVID-19 Vaccine (3 - 2023-2 5 season) 2024 11/09/2020, 10/19/2020 Influenza Adult (#1) 2024 04/24/2020, 05/28/2019, 06/21/2018 DTaP, Tdap and Td Vaccines ( 2 - Td or Tdap) 10/23/2029 10/24/2019 RSV Immunization or 60+ Years (1 - 1-dose 75+ series) 2030 Colorectal Cancer Screening Colonoscopy (10 Years) 06/22/2031 06/22/2021 Zoster Vaccines Completed 08/25/2021, 05/18/2021 Pneumococcal Vaccine: 65+ Years Completed 11/08/2022, 05/28/2019 Meningococcal Vaccine Aged Out No gricelda mariaa eligible based on patient's age to complete this topic RSV Immunizations Under 20 Months Aged Out No longer eligible b ased on patient's age to complete this topic Goals Goal Patient Goal Type Associated Problems Recent Progress Patient-Stated? 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 Health - patient able to perform ADLs independently General No Angely Benton, RN Monitor - able to maintain pain control Lifestyle No Prakash Young RN Insurance MEDICARE [facility] Advance Directives * Full Code (Latest Code Status on File) Date Activated Date Inactivated Comments 12/01/2023 10:31 PM 12/05/2023 1:15 PM * Full Code Date Activated Date Inactivated Comments 09/09/2021 2:21 AM 09/15/2021 1:57 PM * Full Code Date Activated Date Inactivated Comments 05/20/2021 5:47 PM 05/22/2021 4:36 PM * Full Code Date Activated Date Inactivated Comments 07/28/2020 5:43 AM 07/31/2020 1:20 PM * Full Code Date Activated Date Inactivated Comments 06/05/2020 6:58 AM 06/10/2020 6:55 PM Care Teams Rn Oncology Relationship Specialty Start Date End Date Tarsha Maxwell MD [address] [facility] [address] [place] [id number] PCP - General FAMILY PRACTICE 03/03/19
--- OUTSIDE RECORDS SUMMARY | 2024-08-17 02:08 | XMS_ITS | Referral Summary ---
Author Organization [facility] Nelly Jerry Extsabiha nsion Address [address] [facility] [facility] [place] [address] Care Team Providers Care Roof Bolting Coal Miner Name Role Phone Tarsha Maxwell MD Primary Care Provi ronald Capo Young DO Unavailable [phone] Ciara Jones MD Unavailable [phone] Encounters Date Type Department Care Team Description 08/16/2024 10:45 AM INSPECTOR TOOL Office Visit [facility] Medicine [address] [place] [address] Tarsha Maxwell MD Lymphedema of arm (Primary Dx); Malignant neoplasm of lower-outer quadrant of left breast of female, estrogen receptor negative (HCC); Rheumatoid arthritis involving multiple sites with positive rheumatoid factor (CMS/HCC) (HCC); Age-related osteoporosis without current pathological fracture; Strep throat exposure; High risk medication use 06/18/2024 Orders Only [address] [address] Beth Quintana PA 06/18/2024 Nurse Triage [address] [address] Tarsha Maxwell MD 05/29/2024 9:40 AM INSPECTOR TOOL Office Visit [facility] Rheumatology [address] [facility] [address] [place] [address] Mary Crowley MD Thumb pain, right (Primary Dx); High risk medication use; Rheumatoid arthritis involving multiple sites with positive rheumatoid factor (CMS/HCC) (HCC) from Last 3 Months Allergies Active Allergy Reactions Criticality Noted Date [...] the evening as needed., Reported on 08/16/2024 uunysdfj-dnthizm-sfxv- lutein (CENTRUM SILVER ULTRA WOMEN'S) tablet 0 [...] MG) BY MOUTH DAILY 90 tablet 3 Active methotrexate 2.5 mg tabletIndications:auto immune disease [...] per Dr Dominguez 72 tablet 024 2023 Disconti nued(Reo rder) Active Problems Problem Noted Date Diagnosed [...] Call if mood worsens Age-related osteoporosis wit hout current pathological fracture 11/08/2022 Assessment & Plan [...] activity Please look into a power of buttermaker continuous churn or living will-forms given Wear sun screen, [...] changes Assessment & Plan (08/04/2020 2:51 PM INSPECTOR TOOL): Continue current regimen Call for questions or [...] changes Assessment & Plan (09/21/2021 11:17 AM INSPECTOR TOOL): improved Will refer to new ID provider- [...] changes Assessment & Plan (08/04/2020 2:50 PM INSPECTOR TOOL): Continue to follow with ID Continue current [...] slightly worse Will refer to PT at [facility] Will attempt to get new machine after her evaluation Update me with any changes Assessment & Plan (10/27/2021 11:03 AM CDT): Continue to follow with PT Assessment & Plan (09/21/2021 11:19 AM INSPECTOR TOOL): Continue supportive care Continue to monitor for [...] changes Assessment & Plan (07/03/2019 12:53 PM INSPECTOR TOOL): Blood cultures were negative Complete antibiotics History [...] changes Assessment & Plan (07/03/2019 12:57 PM INSPECTOR TOOL): With lymphedema Continue to follow with her [...] changes Assessment & Plan (06/17/2020 1:30 PM INSPECTOR TOOL): Lab ordered Malignant neoplasm of lower- outer quadrant of left breast of female, estrogen receptor negative 03/14/2018 Cancer Staging:Clinical stage from 09/10/2015:Stage IIIA(cT1c, cN2a, cM0, G3, ER: Negative, WA: Negative, HER2: Positive) - Signed by Capo [...] questions Assessment & Plan (06/17/2020 1:27 PM INSPECTOR TOOL): Continue to follow with rheum Update me [...] changes Call for questions Systemic lupus erythematosus ([facility] 5 Assessment & Plan (05/01/2024 10:16 AM CDT): Chronic. Stable. Continue to follow with Rheumatology who is managing methotrexate. Assessment & Plan (12/22/2023 8:55 AM CDT): Chronic, improved Dose of methotrexate adjusted Managed by rheumatology Update me with any changes Assessment & [...] questions Assessment & Plan (08/04/2020 2:50 PM INSPECTOR TOOL): Continue to follow with rheum Update me with any changes Call for questions or concerns Assessment & Plan (06/17/2020 1:26 PM INSPECTOR TOOL): Off methotrexate Continue to follow with rheum [...] updated Assessment & Plan (07/03/2019 12:55 PM INSPECTOR TOOL): Continue to follow with rheum Continue current regimen Call for questions or concerns High risk medication use 07/31/2014 Assessment & Plan (08/16/2024 12:23 PM INSPECTOR TOOL): Chronic, stable Managed by Rheumatology Last notes [...] 08/04/2020 Assessment & Plan (06/17/2020 1:28 PM INSPECTOR TOOL): Continue physical therapy Continue supportive care Assessment [...] 10/15/2020 Assessment & Plan (08/04/2020 2:50 PM INSPECTOR TOOL): Continue current regimen per ID Continue to monitor symptoms closely Update me with any changes Call for questions or concerns Assessment & Plan (06/17/2020 1:18 PM INSPECTOR TOOL): Antibiotics completed Continue prophylactic antibiotics Continue to follow with ID Update me with any changes Call for questions or concerns Assessment & Plan (03/25/2020 1:12 PM CDT): Recurrent Continue to follow with ID Continue to monitor closely Call for questions or concerns Assessment & Plan (07/03/2019 12:53 PM INSPECTOR TOOL): Recurrent Complete antibiotics Will refer to ID given the severity of episodes Anything emergent, to the er Markie for questions or concerns CR (acute kidney injury) 07/03/2019 Assessment & Plan (07/03/2019 12:54 PM INSPECTOR TOOL): Resolved with IV fluids Cellulitis of left [...] with rheum Update me after the visit Immunizations Name Administration Dates Next Due Influenza, [...] Pcv20 11/08/2022 Tdap 10/24/2019 ZOSTER Recombinant 08/25/2021,05/18/2021 Social History Tobacco Use Types Packs/Day Years [...] on file Legal Sex Female 10:36 AM INSPECTOR TOOL Gender Identity Female 06/21/2018 1:11 PM INSPECTOR TOOL Sexual Orientation Not on file Last Filed Vital Signs Vital Sign Reading Time Taken Comments Blood Pressure 112/60 08/16/2024 10:51 AM INSPECTOR TOOL Pulse 80 08/16/2024 10:51 AM INSPECTOR TOOL Temperature 36.3 ??C (97.4 ??F) 08/16/2024 10:[address] Respiratory Rate 12 08/16/2024 10:51 AM INSPECTOR TOOL Oxygen Saturation 98% 08/16/2024 10:51 AM INSPECTOR TOOL Inhaled Oxygen Concentration - - Weight 71.2 kg (157 lb) 08/16/2024 10:51 AM INSPECTOR TOOL Height 165.1 cm (5' 5 ) 08/16/2024 10:51 AM INSPECTOR TOOL Body Mass Index 26.13 08/16/2024 10:51 AM INSPECTOR TOOL Plan of Treatment Not on file Procedures Procedure Name Priority Date/Time Associated Diagnosis Comments MAMMOGRAPHY Routine 08/15/2024 CBC WITH AUTO DIFFERENTIAL Routine 07/02/2024 1:05 PM INSPECTOR TOOL High risk medication use COMPREHENSIVE METABOLIC PANEL Routine 07/02/2024 1:05 PM INSPECTOR TOOL High risk medication use DEXA SCAN Routine 05/01/2024 COLONOSCOPY Routine 06/22/2021 HEPATITIS C ANTIBODY Routine 10/06/2020 9:26 AM CDT Need for hepatitis C screening test from Last 3 Months or Most Recently Relevant to Health Maintenance Results * MAMMOGRAPHY (08/15/2024) Mammography Normal us Historical Provider HEALTH MAINTENANCE Final Result * CBC with auto differential (07/02/2024 1:05 PM INSPECTOR TOOL) [facility] WBC 4.3 3.4 - 10.8 x10E3/uL [facility] [...] [facility] - 01 Blood 07/02/2024 1:05 PM INSPECTOR TOOL 07/02/2024 Narrative [facility] - 07/03/2024 7:09 AM INSPECTOR TOOL Performed at: ??01 - [facility] [address] ??[id number] Supervisor Bindery: Tez Christianson PhD, Phone: ??[phone] us Mary Crowley MD LAB BLOOD ORDERABLES Final Result Performing Organization Address City/[facility]/ZIP Co de Phone Number [facility] 01 * Comprehensive metabolic panel (07/02/2024 1:05 PM INSPECTOR TOOL) Glucose 86 70 - 99 mg/dL [facility] [...] [facility] - 01 Blood 07/02/2024 1:05 PM INSPECTOR TOOL 07/02/2024 Narrative [facility] - 07/03/2024 10:10 AM INSPECTOR TOOL Performed at: ??01 - [facility] [place] [address] [place], [place] ??[id number] Supervisor Bindery: Tez Christianson PhD, Phone: ??[phone] us Mary Crowley MD LAB BLOOD ORDERABLES Final Result Performing Organization Address City/[facility]/ZIP Co de Phone Number [facility] - 01 * [facility] DEXA SCAN (05/01/2024) Historical Provider MD HEALTH MAINTENANCE Final Result * Colonoscopy (06/22/2021) Anatomical Region Laterality Modality Other Historical Provider MD ENDOSCOPY PROCEDURES Lucy l Result * Hepatitis C antibody (10/06/2020 9:26 AM CDT) Hep C Ab <0.1 0.0 - 0.9 s/co ratio [facility] - 01 Comment: ?Negative: ? < 0.8 ? Indeterminate: 0.8 - 0.9 ?Positive: ? > 0.9 The CDC recommends that a positive HCV antibody result be followed up with a HCV Nucleic Acid Amplification test (490752). Blood specimen (specimen) 10/06/2020 9:26 AM CDT 10/06/2020 Narrative [facility] - 10/07/2020 8:12 AM CDT Performed at: ??01 - [facility] [address] ??[id number] Supervisor Bindery: Tez Christianson PhD, Phone: ??[phone] Tarsha Maxwell MD LAB MICROBIOLOGY - GENERAL ORDERABLES Final Result Performing Organization Address City/[facility] Co de Phone Number [facility] - 01 from Last 3 Months or Most Recently Relevant to Health Maintenance Insurance [facility] MEDICARE MEDICARE [facility] MEDICARE [facility] Care Teams Roof Bolting Coal Miner Relationship Specialty Start Date End Date Tarsha Maxwell MD [address] [place] [address] PCP - General 09/01/17 Capo Young DO [address] [place] [address] Medical Oncologist/Hospice Volunteer Coordinator Hematology and Oncology 03/08/18 Ciara Jones MD [address] [place] [address] Referring Physician Radiation Oncology 03/27/19
--- OUTSIDE RECORDS SUMMARY | 2024-08-17 02:08 | XMS_ITS | Encounter Summary ---
Author Organization [facility] Address [address] [place] [address] Care Team Providers Care Resp Ther Name Role Phone Unavailable Primary Care Provider Unavailabl e Encounter Details Date Type Department Care Team (Late st Contact Info) Description 11/06/2020 Lab Requisition [facility] [address] [facility], [facility] [place] [address] Tarsha Maxwell MD [address] [address] Social History Tobacco Use Types Packs/Day Years Used Date Smoking Tobacco: Never Assessed Sex and Gender Information Value Date Recorded Sex Assigned at Not on file Gender Identity Not on file Sexual Orientation Not on file documented as of this encounter Plan of Treatment Not on file documented as of this encounter Procedures Procedure Name Priority Date/Time Associated Diagnosis Comments DERMATOPATHOLOGY Routine 11/03/2020 12:0 0 AM CDT documented in this encounter Results * DERMATOPATHOLOGY (11/03/2020 12:00 AM CDT) Case Report Dermatopathology Report ? Case: [id number] ? Authorizing Provider: ??Tarsha Maxwell MD ?? Collected: ? 11/03/2020 12:00 AM ? Ordering Location: ? [facility] ?Received: ?11/06/2020 08:56 AM ? Pathologist: ? Germaine Gillis MD ? Specimen: ?Skin, right back ? 4:[address] [facility] Final Diagnosis Specimen A. 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 Clinical History Dermatitis. 4:[address] [facility] Gross Description Specimen A: Received is one formalin filled container labeled with the patient's name and designated right back. The specimen consists of a punch biopsy measuring [id number], bisected and submitted with a [id number] fragment. Jar 0. 4:[address] [facility] Microscopic Description Specimen A. SKIN, [...] considered. Clinical correlation is recommended. 4:[address] [facility] Disclaimer An external and internal positive and negative controls are appropriate for the histochemical, immunohistochemical and immunofluorescence stain(s) in this case (if any), except where stated explicitly. The performance characteristics of the stain(s) cited in this report were developed and its performance characteristic determined by the Dermatopathology Laboratory at [facility], directed by Dr. Soy Erazo. These tests need not be, and therefore are not, approved by the [place] Food and Drug Administration. The tests are used for clinical purposes. Billing Codes Specimen Charges Stain Charges 40745 1 56072 08032 1 1 1 4:11 PM CDT DERMATOPATHOLOGY LABORATORY Embedded Images 1 4:11 PM CDT DERMATOPATHOLOGY LABORATORY Pathology/Cytolog y TISSUE SPECIMEN FROM SKIN / Unknown 11/03/2020 11/06/2020 8:56 AM CDT Tarsha Maxwell MD LAB - PATHOLOGY/C YTOLOGY ORDERABLES DERMATOPATHOLOGY LABORATORY [facility] - Department of Dermatology [facility] Specialized Medicine [address] [place] [address], [address] [phone] documented in this encounter Visit Diagnoses Not on filedocumented in this encounter
--- OUTSIDE RECORDS SUMMARY | 2024-08-17 02:08 | XMS_ITS | Encounter Summary ---
Author Organization [facility] Care Team Providers Care Parole Director Name Role Phone Tarsha Maxwell MD Primary Care Provi ronald González Hernandez DO Primary Care Provider + Tarsha Maxwell MD Primary Care Provi ronald Capo Young DO Unavailable [phone] Ciara Jones MD Unavailable [phone] Encounter Details Date Type Department Care Team (Latest Contact Info) Description 03/11/2017 Orders Only [facility] ProviderKatiuska MD [address] [place] [address] Social History Tobacco Use Types Packs/Day Years Used Date Smoking Tobacco: Former Alcohol Use Standard Drinks/Week Comments No 0 (1 standard drink = 0.6 oz pur e alcohol) Comments Unknown Sex and Gender Information Value Date Recorded Sex Assigned at Not on file 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 us Historical Provider Final Res ult documented in [...] COVID: Suspected 06/11/2021 06/11/2021 06/11/2021 10:05 PM VETERINARY ASSISTANT documented as of this encounter Care Teams Parole Director Relationship Specialty Start Date End Date Tarsha Maxwell MD [address] [place] [address] PCP - General 01/17/17 08/21/17 González Hernandez DO [address] [place] [address] [place] [address] PCP - General 08/22/17 08/31/17 Tarsha Maxwell MD [address] [place] [address] PCP - General 09/01/17 Capo Young DO [address] [address] Medical Oncologist/It Help Desk Technician Hematology and Oncology 03/08/18 Ciara Jones MD [address] [place] [address] Referring Physician Radiation Oncology 03/27/19 documented as of this encounter
== END 2024-08-15 14:23 | disposition home or self-care (01) ==
LOC: ANHIMG 14:26
PROVIDERS: PCP Family Medicine; Visit Provider Obstetrics & Gynecology Gynecology
DX: Z12.31 Encounter for screening mammogram for malignant neoplasm of breast (principal)
CPT/HCPCS: 77063; 77067